=== PATIENT | female | born 1940 | race Two or more races ===

== ENCOUNTER 2024-09-28 10:30 | Outpatient (CLI) | payer OTHER ==
[2024-09-28] MEDS ORDERED: TENORMIN25 MG (17:53)
[2024-09-28] MEDS ORDERED: MESTINON60 M1 PO (17:55)
[2024-09-28] MEDS ORDERED: HYDRODIURIL12.5 MG PO (17:55)
== END 2024-09-28 10:39 | disposition home or self-care (01) ==
LOC: TOM 10:30
PROVIDERS: ATTEND Surgery
DX: K57.20 Diverticulitis of large intestine with perforation and abscess without bleeding (principal); K21.00 Gastro-esophageal reflux disease with esophagitis, without bleeding
CPT/HCPCS: 74177; Q9965

== ENCOUNTER 2024-09-28 17:35 | Inpatient (IN) | payer OTHER ==
[~2024-09-28] VITALS: Wt 61.2 kg
[2024-09-28] MEDS ORDERED: TENORMIN25 MG (17:53)
[2024-09-28] MEDS ORDERED: MESTINON60 M1 PO (17:55)
[2024-09-28] MEDS ORDERED: HYDRODIURIL12.5 MG PO (17:55)
--- NOTE | 2024-09-28 17:59 | NUR ---
PTE ALERTA Y ORIENTADA X3, SE WILLY S/V. PTE REFIERE QUE HOY SE REALIZO UN CT Y DR. CHRISTOPHER HERNANDEZ LE INDICO QUE SE ENCONTRABA CON UN DIVERTICULO PERFORADO. DR. CHRISTOPHER HERNANDEZ LE ORDENO QUE VINIERA A ELLIS DE EMERGENCIAS PARA SER INGRESADA. SE UBICA A PTE EN [place].
[2024-09-28] MEDS ORDERED: FAMOTIDINE/PF 20 MG in 0.9 % SODIUM CHLORIDE 8 ML IV PUSH STA (18:36)
[2024-09-28] MEDS ORDERED: 0.9 % SODIUM CHLORIDE 1,000 ML IV SCH ×2 (18:45→21:00)
[2024-09-28] MEDS ORDERED: MEROPENEM 1,000 MG VIAL IV ONE (18:45)
--- NOTE | 2024-09-28 19:08 | NUR ---
SE EDUCA A PTE SOBRE TX MEDICO, SE WILLY MUESTRAS DE LABORATORIO UTILIZANDO MEDIDAS ASEPTICAS. SE COLOCA H/L ENRIQUE DE EDEMA. SE ADMINISTRAN MEDICAMENTOS LOS CUALES TOLERA. PTE REHUSA PEPCID IV. SE REALIZA EKG A PTE Y SE NOTIFICA RX PENDIENTE A REALIZAR.
[2024-09-28 19:16] LABS: HEMATOCRIT 31.2 % (36.0-45.00); HEMOGLOBIN 10.3 g/dL (12.0-15.00); MEAN CELL VOLUME 88.9 fL (80.00-100.00); MEAN CORPUSCULAR HEMOGLOBIN 29.3 pg (27.00-32.0); PLATELET COUNT 485 K/uL (150-450); RED BLOOD COUNT 3.51 M/uL (4.00-6.00); RED CELL DISTRIBUTION WIDTH 15.2 % (11.5-14.5)
[2024-09-28 20:19] LABS: INR 1.09; PARTIAL THROMBOPLASTIN TIME 27.6 SECONDS (22.0-34.0); PROTHROMBIN TIME 11.8 SECONDS (9.0-11.5)
[2024-09-28 20:23] LABS: ALBUMIN 2.4 gm/dL (3.4-5.0); BILIRUBIN TOTAL 0.3 mg/dL (0.3-1.2); CALCIUM 8.6 mg/dL (8.5-10.1); CREATININE SERUM 0.81 mg/dL (0.55-1.02); GFR 67.36; GLOBULINA 4.3 G/DL (2.4-3.5); POTASSIUM 3.42 mEq/L (3.5-5.1); TOTAL PROTEIN 6.7 gm/dL (6.4-8.2)
[2024-09-28] MEDS ORDERED: PYRIDOSTIGMINE BROMIDE 60 MG TABLET PO SCH (21:00)
[2024-09-28] MEDS ORDERED: ACETAMINOPHEN 500 MG GEL..CAP PO PRN (21:00)
[2024-09-28] MEDS ORDERED: ONDANSETRON HCL 4 MG in 0.9 % SODIUM CHLORIDE 50 ML IV PRN (21:00)
[2024-09-28 23:14] VITALS: BP 145/57; O2SAT 97
[2024-09-29 01:52] LABS: PH,URINE 7.5 (5.0-8.0); URINE APPEARANCE Clear; URINE BILIRRUBIN Negative (NEGATIVE); URINE BLOOD Negative; URINE COLOR Dark Yellow; URINE GLUCOSE Negative (NEGATIVE); URINE KETONE Trace (NEGATIVE); URINE LEUKOCYTE Trace; URINE NITRATE Positive; URINE PROTEIN Trace (NEGATIVE)
[2024-09-29 01:56] LABS: URINE BACTERIA 20.8 uL (0.0-1933); URINE EPITHELIAL CELLS 19.1 uL (0.0-38.8); URINE RBC 18.7 uL (0.0-20.8); URINE WBC 61.3 uL (0.0-23.2)
[2024-09-29 02:07] LABS: URINE CAST 0.29 uL (0.0-1.40)
[2024-09-29 02:15] VITALS: BP 134/69; O2SAT 98
[2024-09-29] MEDS ORDERED: MEROPENEM 1,000 MG in 0.9 % SODIUM CHLORIDE 100 ML IV SCH (03:00)
[2024-09-29 08:00] VITALS: BP 135/77; O2SAT 96
[2024-09-29] MEDS ORDERED: HYDROCHLOROTHIAZIDE 12.5 MG CAPSULE PO SCH (09:00)
[2024-09-29] MEDS ORDERED: ENOXAPARIN SODIUM 40 MG/0.4 ML SYRINGE SUBCUTANEO SCH (09:00)
[2024-09-29] MEDS ORDERED: ATENOLOL 25 MG TABLET PO SCH (09:00)
[2024-09-29] MEDS ORDERED: MULTIVIT INFUSN,ADULT 4,VIT K 10 ML VIAL IV NR (12:00)
[2024-09-29 16:22] VITALS: BP 164/70; O2SAT 94
[2024-09-29] MEDS ORDERED: POLYETHYLENE GLYCOL 3350 17 GM BLIST.PACK PO SCH (17:00)
[2024-09-29] MEDS ORDERED: AMINO ACIDS 4.25%/DEXTROSE 10% 1,000 ML CENTRAL SCH (17:00)
[2024-09-29 23:30] LABS: CALCIUM 8.7 mg/dL (8.5-10.1); CHOL HDL RATIO 2.8 (0-5.0); CREATININE SERUM 0.66 mg/dL (0.55-1.02); GFR 85.32; POTASSIUM 3.4 mEq/L (3.5-5.1)
[2024-09-30 00:24] VITALS: BP 136/73; O2SAT 95
[2024-09-30 08:00] VITALS: BP 167/75; O2SAT 97
[2024-09-30 16:12] VITALS: BP 130/65; O2SAT 94
[2024-10-01 00:19] VITALS: BP 120/56; O2SAT 94
[2024-10-01] MEDS ORDERED: SUGAMMADEX SODIUM 200 MG/2 ML VIAL IV ONE (12:30)
[2024-10-01] MEDS ORDERED: MORPHINE SULFATE 4 MG/ML CARTRIDGE IV PRN (13:00)
[2024-10-01] MEDS ORDERED: HYOSCYAMINE SULFATE 0.125 MG TAB.SUBL SL SCH (13:00)
[2024-10-01] MEDS ORDERED: SIMETHICONE 125 MG CAPSULE PO SCH (13:00)
[2024-10-01] MEDS ORDERED: DEXTROSE 50 % IN WATER 0.5 G/ML DISP.SYRIN IV PRN (13:00)
[2024-10-01] MEDS ORDERED: OxyCODONE HCL 5 MG TABLET (ROXICODONE) PO PRN (13:00)
[2024-10-01] MEDS ORDERED: ONDANSETRON HCL 2 MG/ML VIAL IV PRN (13:00)
[2024-10-01 13:44] LABS: HEMOGLOBIN 9.9 g/dL (12.0-15.00); MEAN CELL VOLUME 89.7 fL (80.00-100.00); MEAN CORPUSCULAR HEMOGLOBIN 29.5 pg (27.00-32.0); MEAN CORPUSCULAR HGB CONC 32.9 g/dl (32.0-36.0); PLATELET COUNT 469 K/uL (150-450); RED BLOOD COUNT 3.34 M/uL (4.00-6.00); RED CELL DISTRIBUTION WIDTH 15.1 % (11.5-14.5)
[2024-10-01] MEDS ORDERED: ACETAMINOPHEN 500 MG GEL..CAP PO SCH (14:00)
[2024-10-01 14:07] VITALS: BP 146/85; O2SAT 95
[2024-10-01] MEDS ORDERED: METOCLOPRAMIDE HCL 5 MG/ML VIAL IV SCH (17:00)
[2024-10-01] MEDS ORDERED: MEROPENEM 500 MG/VIAL VIAL IV SCH (18:00)
[2024-10-01] MEDS ORDERED: HYDROCORTISONE SODIUM SUCC/PF 50 MG/ML ML IV SCH (18:00)
[2024-10-01] MEDS ORDERED: FAMOTIDINE/PF 20 MG/2 ML VIAL IV PUSH SCH (21:00)
[2024-10-02 01:18] VITALS: BP 134/65; O2SAT 98
[2024-10-02 06:56] LABS: HEMATOCRIT 26.8 % (36.0-45.00); MEAN CELL VOLUME 87.8 fL (80.00-100.00); MEAN CORPUSCULAR HEMOGLOBIN 29.5 pg (27.00-32.0); MEAN CORPUSCULAR HGB CONC 33.7 g/dl (32.0-36.0); PLATELET COUNT 359 K/uL (150-450); RED BLOOD COUNT 3.05 M/uL (4.00-6.00)
[2024-10-02 07:26] LABS: ALBUMIN 1.8 gm/dL (3.4-5.0); BILIRUBIN TOTAL 0.27 mg/dL (0.3-1.2); CALCIUM 7.7 mg/dL (8.5-10.1); CREATININE SERUM 0.76 mg/dL (0.55-1.02); GFR 72.5; GLOBULINA 3.3 G/DL (2.4-3.5); PHOSPHOROUS 2.5 mg/dL (2.5-4.9); POTASSIUM 3.69 mEq/L (3.5-5.1); TOTAL PROTEIN 5.1 gm/dL (6.4-8.2)
[2024-10-02 07:28] LABS: C-REACTIVE PROTEIN 4.66 MG/DL (0.00-0.29)
[2024-10-02 07:29] LABS: MAGNESIUM 1.4 mg/dL (1.8-2.4)
[2024-10-02 08:00] VITALS: BP 142/66; O2SAT 95
[2024-10-02] MEDS ORDERED: MAGNESIUM SULFATE IN WATER 50 ML IV NR (08:00)
[2024-10-02] MEDS ORDERED: LACTOBACILLUS ACIDOPHILUS 1 CAP CAP PO SCH (09:00)
[2024-10-02] MEDS ORDERED: HYDROCORTISONE SODIUM SUCC/PF 50 MG/ML ML IV SCH (12:00)
[2024-10-02] MEDS ORDERED: ENOXAPARIN SODIUM 40 MG/0.4 ML SYRINGE SUBCUTANEO SCH (17:00)
[2024-10-02 19:49] VITALS: BP 170/85; O2SAT 97
[2024-10-03 00:10] VITALS: BP 136/82; O2SAT 96
[2024-10-03 07:53] LABS: HEMATOCRIT 28.5 % (36.0-45.00); HEMOGLOBIN 9.2 g/dL (12.0-15.00); MEAN CELL VOLUME 89.5 fL (80.00-100.00); MEAN CORPUSCULAR HEMOGLOBIN 28.8 pg (27.00-32.0); MEAN CORPUSCULAR HGB CONC 32.1 g/dl (32.0-36.0); PLATELET COUNT 396 K/uL (150-450); RED BLOOD COUNT 3.19 M/uL (4.00-6.00); RED CELL DISTRIBUTION WIDTH 15.3 % (11.5-14.5)
[2024-10-03 08:00] VITALS: BP 171/74; O2SAT 99
[2024-10-03 08:29] LABS: BLOOD UREA NITROGEN 23 mg/dL (7-18); BUN CREA RATIO 33 (7.0-25.0); CALCIUM 8.1 mg/dL (8.5-10.1); CARBON DIOXIDE 29 mEq/L (21-32); CHLORIDE 114 mmol/L (98-107); GFR 79.72; GLUCOSE FASTING 106 mg/dL (65-100); OSMOLALITY SERUM 280 MOSM/KG (275-295); POTASSIUM 3.38 mEq/L (3.5-5.1); SODIUM 138 mmol/L (136-145)
[2024-10-03] MEDS ORDERED: ENOXAPARIN SODIUM 40 MG/0.4 ML SYRINGE SUBCUTANEO SCH (09:00)
[2024-10-03 10:48] LABS: PHOSPHOROUS 1.2 mg/dL (2.5-4.9)
[2024-10-03] MEDS ORDERED: POTASSIUM CHLORIDE 20MEQ/100ML H2O PB IV NR (11:30)
[2024-10-03] MEDS ORDERED: POTASSIUM PHOS,M-BASIC-D-BASIC 15 MM in 0.9 % SODIUM CHLORIDE 250 ML IV NR (11:30)
[2024-10-03 16:00] VITALS: BP 131/69; O2SAT 95
[2024-10-03] MEDS ORDERED: HYDROCORTISONE SODIUM SUCC/PF 50 MG/ML ML IV SCH (21:00)
[2024-10-04 01:31] VITALS: BP 138/71; O2SAT 96
[2024-10-04 09:26] VITALS: BP 181/76; O2SAT 97
[2024-10-04 11:19] LABS: HEMATOCRIT 30.6 % (36.0-45.00); MEAN CELL VOLUME 89.5 fL (80.00-100.00); MEAN CORPUSCULAR HEMOGLOBIN 29.2 pg (27.00-32.0); MEAN CORPUSCULAR HGB CONC 32.7 g/dl (32.0-36.0); PLATELET COUNT 488 K/uL (150-450); RED BLOOD COUNT 3.43 M/uL (4.00-6.00); RED CELL DISTRIBUTION WIDTH 15.3 % (11.5-14.5)
== END 2024-10-04 14:59 | disposition home or self-care (01) | DRG 331 ==
LOC: ER 17:37 → SURH 21:58
PROVIDERS: General Practice; Internal Medicine Geriatric Medicine; Internal Medicine Infectious Disease; ADMIT Surgery; ATTEND Surgery
PROC: 02HV33Z Insertion of Infusion Device into Superior Vena Cava, Percutaneous Approach (ICD-10-PCS; 2024-10-01)
PROC: 0D1B4Z4 Bypass Ileum to Cutaneous, Percutaneous Endoscopic Approach (ICD-10-PCS; principal; 2024-10-01 09:45)
DX: K57.20 Diverticulitis of large intestine with perforation and abscess without bleeding (principal); I10 Essential (primary) hypertension; E78.5 Hyperlipidemia, unspecified; K40.90 Unilateral inguinal hernia, without obstruction or gangrene, not specified as recurrent; G70.00 Myasthenia gravis without (acute) exacerbation; D64.9 Anemia, unspecified

== ENCOUNTER 2024-10-27 13:03 | Inpatient (IN) | payer OTHER ==
[~2024-10-27] VITALS: Ht 154.9 cm; Wt 54.4 kg
[~2024-10-27 13:03] MED LIST: HYDRODIURIL12.5 MG PO; MESTINON60 M1 PO; TENORMIN25 MG
[2024-10-27] MEDS ORDERED: DICYCLOMINE HCL 20 MG TABLET PO ONE (14:00)
[2024-10-27] MEDS ORDERED: 0.9 % SODIUM CHLORIDE 1,000 ML IV ONE ×2 (14:00→17:15)
[2024-10-27] MEDS ORDERED: FAMOtidine 10 MG/ML (4ML VIAL) IV ONE (14:00)
[2024-10-27] MEDS ORDERED: DICYCLOMINE HCL 10 MG CAPSULE PO ONE (14:22)
[2024-10-27] MEDS ORDERED: FAMOTIDINE/PF 20 MG/2 ML VIAL ONE (14:22)
[2024-10-27 15:43] LABS: URINE APPEARANCE Clear; URINE BILIRRUBIN Negative (NEGATIVE); URINE BLOOD Negative; URINE COLOR Dark Yellow; URINE GLUCOSE Negative (NEGATIVE); URINE KETONE Trace (NEGATIVE); URINE LEUKOCYTE Trace; URINE NITRATE Negative; URINE PROTEIN 30 (NEGATIVE); URINE UROBILINOGEN 0.2 E.U./dl
[2024-10-27 15:44] LABS: URINE BACTERIA 189.6 uL (0.0-1933); URINE CAST 5.59 uL (0.0-1.40); URINE EPITHELIAL CELLS 35.4 uL (0.0-38.8); URINE RBC 19.1 uL (0.0-20.8); URINE WBC 32.4 uL (0.0-23.2)
[2024-10-27 15:49] LABS: HEMATOCRIT 36.1 % (36.0-45.00); MEAN CELL VOLUME 87.5 fL (80.00-100.00); MEAN CORPUSCULAR HEMOGLOBIN 29.1 pg (27.00-32.0); MEAN CORPUSCULAR HGB CONC 33.3 g/dl (32.0-36.0); PLATELET COUNT 596 K/uL (150-450); RED BLOOD COUNT 4.12 M/uL (4.00-6.00); RED CELL DISTRIBUTION WIDTH 15.8 % (11.5-14.5)
[2024-10-27 16:28] LABS: ALBUMIN 3.1 gm/dL (3.4-5.0); BILIRUBIN TOTAL 0.41 mg/dL (0.3-1.2); CALCIUM 9.8 mg/dL (8.5-10.1); CREATININE SERUM 2.33 mg/dL (0.55-1.02); GFR 19.9; GLOBULINA 5.2 G/DL (2.4-3.5); POTASSIUM 4.43 mEq/L (3.5-5.1); TOTAL PROTEIN 8.3 gm/dL (6.4-8.2)
[2024-10-27] MEDS ORDERED: PIPERACILLIN/TAZOBACTAM SODIUM 3.375 GM VIAL IV SCH (17:02)
[2024-10-27] MEDS ORDERED: PIPERACILLIN/TAZOBACTAM SODIUM 3.375 GM VIAL IV ONE (17:19)
[2024-10-27] MEDS ORDERED: PYRIDOSTIGMINE BROMIDE 60 MG TABLET PO SCH (21:42)
[2024-10-27] MEDS ORDERED: INSULIN LISPRO 1,000 UNIT/10 ML UNITS SUBCUTANEO PRN (21:45)
[2024-10-27] MEDS ORDERED: DEXTROSE 5 % AND 0.9 % NACL 1,000 ML IV SCH (21:45)
[2024-10-27] MEDS ORDERED: ACETAMINOPHEN 500 MG GEL..CAP PO PRN (21:45)
[2024-10-27] MEDS ORDERED: MORPHINE SULFATE 2 MG/ML CARTRIDGE IV PRN (21:45)
[2024-10-27] MEDS ORDERED: DEXTROSE 50 % IN WATER 0.5 G/ML DISP.SYRIN IV PRN (21:45)
[2024-10-27] MEDS ORDERED: ONDANSETRON HCL 4 MG in 0.9 % SODIUM CHLORIDE 50 ML IV PRN (21:45)
[2024-10-27] MEDS ORDERED: HYOSCYAMINE SULFATE 0.125 MG TAB.SUBL SL PRN (21:45)
[2024-10-27] MEDS ORDERED: hydrALAZINE HCL 20 MG VIAL IV PRN (21:45)
[2024-10-28] MEDS ORDERED: PIPERACILLIN/TAZOBACTAM SODIUM 2.25 GM in DEXTROSE 5 % IN WATER 50 ML IV SCH
[2024-10-28 03:39] VITALS: BP 124/58; O2SAT 98
[2024-10-28 07:31] LABS: HEMATOCRIT 30.9 % (36.0-45.00); HEMOGLOBIN 10.3 g/dL (12.0-15.00); MEAN CELL VOLUME 87.6 fL (80.00-100.00); MEAN CORPUSCULAR HEMOGLOBIN 29.2 pg (27.00-32.0); MEAN CORPUSCULAR HGB CONC 33.4 g/dl (32.0-36.0); PLATELET COUNT 480 K/uL (150-450); RED BLOOD COUNT 3.52 M/uL (4.00-6.00)
[2024-10-28 08:00] VITALS: BP 121/56; O2SAT 100
[2024-10-28] MEDS ORDERED: PANTOPRAZOLE SODIUM 40 MG in 0.9 % SODIUM CHLORIDE 8 ML IV PUSH SCH (09:00)
[2024-10-28] MEDS ORDERED: ATENOLOL 25 MG TABLET PO SCH (09:00)
[2024-10-28 09:04] LABS: ERYTHROCYTE SEDIMENTATION RATE 102 mm/hr
[2024-10-28] MEDS ORDERED: PYRIDOSTIGMINE BROMIDE 60 MG TABLET PO SCH (12:00)
[2024-10-28] MEDS ORDERED: DEXTROSE 5%-WATER 50ML IV.SOLN ONE (12:18)
[2024-10-28 16:40] VITALS: BP 104/61; O2SAT 98
[2024-10-28 23:53] VITALS: BP 93/49; O2SAT 93
[2024-10-29 07:59] VITALS: BP 101/53; O2SAT 96
[2024-10-29 15:52] VITALS: BP 126/60; O2SAT 98
[2024-10-29 22:25] LABS: ob NEGATIVE (NEGATIVE)
[2024-10-30] VITALS: BP 100/61; O2SAT 95
[2024-10-30 07:42] LABS: HEMATOCRIT 31.2 % (36.0-45.00); HEMOGLOBIN 10.2 g/dL (12.0-15.00); MEAN CELL VOLUME 88.6 fL (80.00-100.00); MEAN CORPUSCULAR HEMOGLOBIN 29.1 pg (27.00-32.0); MEAN CORPUSCULAR HGB CONC 32.8 g/dl (32.0-36.0); PLATELET COUNT 464 K/uL (150-450); RED BLOOD COUNT 3.53 M/uL (4.00-6.00); RED CELL DISTRIBUTION WIDTH 16.2 % (11.5-14.5)
[2024-10-30 08:10] LABS: ALBUMIN 2.3 gm/dL (3.4-5.0); BILIRUBIN TOTAL 0.34 mg/dL (0.3-1.2); C-REACTIVE PROTEIN 6.41 MG/DL (0.00-0.29); CALCIUM 8.7 mg/dL (8.5-10.1); CREATININE SERUM 1.87 mg/dL (0.55-1.02); GFR 25.65; GLOBULINA 3.7 G/DL (2.4-3.5); POTASSIUM 4.12 mEq/L (3.5-5.1)
[2024-10-30 08:13] LABS: ERYTHROCYTE SEDIMENTATION RATE 61 mm/hr
[2024-10-30 10:34] VITALS: BP 98/63; O2SAT 93
[2024-10-30 16:24] VITALS: BP 106/61; O2SAT 96
[2024-10-31 05:15] VITALS: BP 113/71; O2SAT 97
[2024-10-31 07:03] LABS: HEMATOCRIT 30.1 % (36.0-45.00); MEAN CELL VOLUME 88.9 fL (80.00-100.00); MEAN CORPUSCULAR HEMOGLOBIN 29.6 pg (27.00-32.0); MEAN CORPUSCULAR HGB CONC 33.3 g/dl (32.0-36.0); PLATELET COUNT 431 K/uL (150-450); RED BLOOD COUNT 3.39 M/uL (4.00-6.00); RED CELL DISTRIBUTION WIDTH 16.1 % (11.5-14.5)
[2024-10-31 07:45] LABS: CALCIUM 8.7 mg/dL (8.5-10.1); CREATININE SERUM 1.25 mg/dL (0.55-1.02); GFR 40.83; PHOSPHOROUS 3.1 mg/dL (2.5-4.9); POTASSIUM 3.96 mEq/L (3.5-5.1)
[2024-10-31 08:03] LABS: MAGNESIUM 1.1 mg/dL (1.8-2.4)
[2024-10-31] MEDS ORDERED: MAGNESIUM SULFATE IN WATER 50 ML IV NR (08:50)
[2024-10-31 09:09] VITALS: BP 107/64; O2SAT 96
[2024-10-31] MEDS ORDERED: IOVERSOL 320 MG/ML - 50 ML VIAL IV ONE (11:09)
[2024-10-31] MEDS ORDERED: CHLORHEXIDINE GLUCONATE 120 ML BOTTLE TOP ONE (11:10)
[2024-10-31] MEDS ORDERED: POVIDONE-IODINE 118 ML BOTT TOP ONE (11:10)
[2024-10-31] MEDS ORDERED: DEXTROSE 50 % IN WATER 0.5 G/ML DISP.SYRIN IV PRN (14:15)
[2024-11-01 01:48] VITALS: BP 109/62; O2SAT 96
[2024-11-01] MEDS ORDERED: METHYLPREDNISOLONE SOD SUCC 40 MG VIAL IV STA (11:59)
[2024-11-01] MEDS ORDERED: SODIUM CHLORIDE 0.45 % 1,000 ML IV SCH (12:00)
[2024-11-01 14:13] LABS: ABG PH 7.391 (7.35-7.45); ABG PO2 84.7 mmHg (80-100); ABG pCO2 30.4 mmHg (35-45); BASE EXCESS -5.6 mmol/l; Tco2 18.9 mmol/l
[2024-11-01 14:15] LABS: allen test SATISFACTORY; o2 21 %; puncture site RADIAL RIGHT
[2024-11-01 18:59] VITALS: BP 143/83; O2SAT 95
[2024-11-02 03:50] VITALS: BP 140/73; O2SAT 100
[2024-11-02 07:08] LABS: HEMATOCRIT 30.4 % (36.0-45.00); HEMOGLOBIN 10.2 g/dL (12.0-15.00); MEAN CELL VOLUME 86.7 fL (80.00-100.00); MEAN CORPUSCULAR HEMOGLOBIN 29.2 pg (27.00-32.0); MEAN CORPUSCULAR HGB CONC 33.7 g/dl (32.0-36.0); PLATELET COUNT 439 K/uL (150-450); RED BLOOD COUNT 3.51 M/uL (4.00-6.00); RED CELL DISTRIBUTION WIDTH 16.6 % (11.5-14.5)
[2024-11-02 08:03] LABS: CREATININE SERUM 1.02 mg/dL (0.55-1.02); GFR 51.63; PHOSPHOROUS 2.5 mg/dL (2.5-4.9); POTASSIUM 3.41 mEq/L (3.5-5.1)
[2024-11-02 08:18] LABS: MAGNESIUM 1.1 mg/dL (1.8-2.4)
[2024-11-02] MEDS ORDERED: METHYLPREDNISOLONE SOD SUCC 40 MG VIAL IV SCH (09:00)
[2024-11-02] MEDS ORDERED: MAGNESIUM SULFATE IN WATER 2 GM/50 ML PIGGYBAG IV STA (10:58)
[2024-11-02] MEDS ORDERED: POTASSIUM CHLORIDE 20MEQ/100ML H2O PB IV NR (11:00)
[2024-11-02] MEDS ORDERED: DIPHENHYDRAMINE HCL 50 MG/ML VIAL 1ML IV STA (12:40)
[2024-11-02] MEDS ORDERED: DIPHENHYDRAMINE HCL 50 MG/ML VIAL 1ML ONE (12:48)
[2024-11-02] MEDS ORDERED: WATER IV SCH (18:00)
[2024-11-02] MEDS ORDERED: [UNRECOGNIZED DRUG - OTHER] IV SCH (18:00)
[2024-11-02] MEDS ORDERED: PIPERACILLIN IV SCH (18:00)
[2024-11-02] MEDS ORDERED: DEXTROSE 5% IV SCH (18:00)
[2024-11-02 19:24] VITALS: BP 150/70; O2SAT 98
[2024-11-03 01:27] VITALS: BP 163/75; O2SAT 96
[2024-11-03 08:00] VITALS: BP 150/65
[2024-11-03 16:00] VITALS: BP 123/71; O2SAT 99
[2024-11-04 02:01] VITALS: BP 146/69; O2SAT 95
[2024-11-04 08:00] VITALS: BP 142/73; O2SAT 99
[2024-11-04 16:00] VITALS: BP 157/89; O2SAT 96
[2024-11-04 17:45] LABS: URINE APPEARANCE Cloudy; URINE BILIRRUBIN Negative (NEGATIVE); URINE BLOOD Large; URINE COLOR Yellow; URINE GLUCOSE Negative (NEGATIVE); URINE KETONE Negative (NEGATIVE); URINE LEUKOCYTE Small; URINE NITRATE Negative; URINE UROBILINOGEN 0.2 E.U./dl
[2024-11-04 18:12] LABS: URINE BACTERIA 129.7 uL (0.0-1933); URINE EPITHELIAL CELLS 19.4 uL (0.0-38.8); URINE RBC 5738.8 uL (0.0-20.8); URINE WBC 76.6 uL (0.0-23.2)
[2024-11-04 18:28] LABS: URINE CAST 0.58 uL (0.0-1.40); URINE PROTEIN 100 (NEGATIVE)
[2024-11-05 01:18] VITALS: BP 158/83; O2SAT 98
[2024-11-05 08:00] VITALS: BP 154/79; O2SAT 100
[2024-11-05 11:04] LABS: HEMATOCRIT 32.7 % (36.0-45.00); MEAN CELL VOLUME 87.2 fL (80.00-100.00); MEAN CORPUSCULAR HEMOGLOBIN 29.2 pg (27.00-32.0); MEAN CORPUSCULAR HGB CONC 33.5 g/dl (32.0-36.0); PLATELET COUNT 449 K/uL (150-450); RED BLOOD COUNT 3.75 M/uL (4.00-6.00); RED CELL DISTRIBUTION WIDTH 16.4 % (11.5-14.5)
[2024-11-05 11:55] LABS: CALCIUM 9.3 mg/dL (8.5-10.1); CREATININE SERUM 0.95 mg/dL (0.55-1.02); GFR 56.04; POTASSIUM 4.13 mEq/L (3.5-5.1)
[2024-11-05 12:42] LABS: MAGNESIUM 1.2 mg/dL (1.8-2.4); PHOSPHOROUS 1.3 mg/dL (2.5-4.9)
[2024-11-05] MEDS ORDERED: POTASSIUM PHOS,M-BASIC-D-BASIC 15 MM in 0.9 % SODIUM CHLORIDE 250 ML IV NR (12:45)
[2024-11-05] MEDS ORDERED: MAGNESIUM SULFATE IN WATER 50 ML IV NR (12:45)
[2024-11-05] MEDS ORDERED: MAGNESIUM CHLORIDE 70 MG TABLET.DR PO STA (14:26)
[2024-11-05] MEDS ORDERED: DIPHENHYDRAMINE HCL 50 MG/ML VIAL 1ML IV NR (14:30)
[2024-11-05 14:50] VITALS: BP 184/95; O2SAT 100
[2024-11-05 16:00] VITALS: BP 152/67; O2SAT 100
[2024-11-05] MEDS ORDERED: LOPERAMIDE HCL 2 MG CAPSULE PO SCH (16:00)
[2024-11-05 16:52] LABS: ABG PH 7.379 (7.35-7.45); ABG PO2 115.4 mmHg (80-100); ABG pCO2 39.4 mmHg (35-45); BASE EXCESS -2.1 mmol/l; BICARBONATE 22.7 mmol/l (23-25); SaO2 98.3 %
[2024-11-06] VITALS: BP 187/93; O2SAT 100
[2024-11-06 00:02] LABS: allen test SATISFACTORY; o2 28 %; puncture site RADIAL LEFT
[2024-11-06 01:00] VITALS: BP 130/53
[2024-11-06] MEDS ORDERED: ACETAMINOPHEN 500 MG GEL..CAP PO PRN (01:45)
[2024-11-06 07:55] LABS: HEMATOCRIT 30.9 % (36.0-45.00); MEAN CELL VOLUME 88.5 fL (80.00-100.00); MEAN CORPUSCULAR HGB CONC 33.1 g/dl (32.0-36.0); PLATELET COUNT 422 K/uL (150-450); RED BLOOD COUNT 3.49 M/uL (4.00-6.00); RED CELL DISTRIBUTION WIDTH 16.8 % (11.5-14.5)
[2024-11-06 08:00] VITALS: BP 135/55
[2024-11-06 08:04] LABS: HEMOGLOBIN 10.2 g/dL (12.0-15.00); MEAN CORPUSCULAR HEMOGLOBIN 29.2 pg (27.00-32.0)
[2024-11-06] MEDS ORDERED: MAGNESIUM CHLORIDE 70 MG TABLET.DR PO SCH (09:00)
[2024-11-06] MEDS ORDERED: PREDNISONE 20 MG TABLET PO SCH (09:00)
[2024-11-06] MEDS ORDERED: LOPERAMIDE HCL 2 MG CAPSULE PO SCH (13:00)
[2024-11-06 16:00] VITALS: BP 125/52; O2SAT 99
[2024-11-06] MEDS ORDERED: AMINO ACIDS 1 EACH TABLET PO SCH (17:00)
[2024-11-07 00:49] VITALS: BP 139/52
[2024-11-07 08:00] VITALS: BP 166/77; O2SAT 97
[2024-11-07 19:42] VITALS: BP 133/72; O2SAT 98
[2024-11-08 02:35] VITALS: BP 137/70; O2SAT 99
[2024-11-08 07:09] LABS: HEMATOCRIT 26.6 % (36.0-45.00); MEAN CELL VOLUME 87.4 fL (80.00-100.00); MEAN CORPUSCULAR HGB CONC 33.3 g/dl (32.0-36.0); PLATELET COUNT 342 K/uL (150-450); RED BLOOD COUNT 3.04 M/uL (4.00-6.00); RED CELL DISTRIBUTION WIDTH 16.8 % (11.5-14.5)
[2024-11-08 07:13] LABS: HEMOGLOBIN 8.8 g/dL (12.0-15.00); MEAN CORPUSCULAR HEMOGLOBIN 28.9 pg (27.00-32.0)
[2024-11-08 07:17] LABS: ERYTHROCYTE SEDIMENTATION RATE 45 mm/hr
[2024-11-08 07:47] LABS: CREATININE SERUM 0.78 mg/dL (0.55-1.02); GFR 70.36; POTASSIUM 4.19 mEq/L (3.5-5.1)
[2024-11-08 07:53] LABS: C-REACTIVE PROTEIN 1.55 MG/DL (0.00-0.29)
[2024-11-08 08:00] VITALS: BP 180/90; O2SAT 100
[2024-11-08] MEDS ORDERED: PREDNISONE 5 MG TABLET PO SCH (09:00)
[2024-11-08] MEDS ORDERED: hydrALAZINE HCL 25 MG TABLET PO SCH (17:00)
[2024-11-08 17:24] VITALS: BP 169/71; O2SAT 100
[2024-11-09 01:20] VITALS: BP 144/76; O2SAT 96
[2024-11-09 08:00] VITALS: BP 148/78; O2SAT 99
[2024-11-09] MEDS ORDERED: Cyanocobalamin/Mecobalamin 1 TAB.SL SL SCH (09:00)
[2024-11-09] MEDS ORDERED: IRON FUM,PS/FOLIC ACID/VITC/B3 1 CAP CAPSULE PO SCH (09:00)
[2024-11-09] MEDS ORDERED: LOPERAMIDE2 MG PO (13:15)
[2024-11-09] MEDS ORDERED: Neurin-Sl Tablet Sl SL (13:15)
[2024-11-09] MEDS ORDERED: PRE PROTEIN1 EACH PO (13:15)
[2024-11-09] MEDS ORDERED: MESTINON60 M1 PO (13:15)
[2024-11-09] MEDS ORDERED: PREDNISONE 5MG PO (13:15)
[2024-11-09] MEDS ORDERED: TENORMIN25 MG PO (13:15)
[2024-11-09] MEDS ORDERED: PEPCID AC20 MG PO (13:15)
[2024-11-09] MEDS ORDERED: INTEGRA F CAPS1 EACH PO (13:15)
[2024-11-09] MEDS ORDERED: HYDRALAZINE HCL25 MG PO (13:15)
== END 2024-11-09 13:59 | disposition home or self-care (01) | DRG 853 ==
LOC: ER 13:05 → SEC-K 22:13 → SURG 22:13
PROVIDERS: General Practice; Internal Medicine; Internal Medicine Infectious Disease; Surgery; Urology; ADMIT Internal Medicine Geriatric Medicine; ATTEND Internal Medicine Geriatric Medicine
PROC: BW21ZZZ Computerized Tomography (CT Scan) of Abdomen and Pelvis (ICD-10-PCS; 2024-10-26)
PROC: BT43ZZZ Ultrasonography of Bilateral Kidneys (ICD-10-PCS; 2024-10-27)
PROC: 02HV33Z Insertion of Infusion Device into Superior Vena Cava, Percutaneous Approach (ICD-10-PCS; 2024-10-30)
PROC: 0T768DZ Dilation of Right Ureter with Intraluminal Device, Via Natural or Artificial Opening Endoscopic (ICD-10-PCS; principal; 2024-10-31 18:00)
PROC: 0DJD8ZZ Inspection of Lower Intestinal Tract, Via Natural or Artificial Opening Endoscopic (ICD-10-PCS; 2024-10-31 18:00)
PROC: B24BYZZ Ultrasonography of Heart with Aorta using Other Contrast (ICD-10-PCS; 2024-11-05)
PROC: BW21YZZ Computerized Tomography (CT Scan) of Abdomen and Pelvis using Other Contrast (ICD-10-PCS; 2024-11-07)
DX: A41.9 Sepsis, unspecified organism (principal); K65.1 Peritoneal abscess; K57.92 Diverticulitis of intestine, part unspecified, without perforation or abscess without bleeding; N17.9 Acute kidney failure, unspecified; N13.0 Hydronephrosis with ureteropelvic junction obstruction; D72.829 Elevated white blood cell count, unspecified; R65.10 Systemic inflammatory response syndrome (SIRS) of non-infectious origin without acute organ dysfunction; D64.9 Anemia, unspecified; G70.00 Myasthenia gravis without (acute) exacerbation; Z79.52 Long term (current) use of systemic steroids; I10 Essential (primary) hypertension

== ENCOUNTER 2024-12-04 11:31 | Outpatient (CLI) | payer OTHER ==
[~2024-12-04 11:31] MED LIST changes: +HYDRALAZINE HCL25 MG PO; +INTEGRA F CAPS1 EACH PO; +LOPERAMIDE2 MG PO; +Neurin-Sl Tablet Sl SL; +PEPCID AC20 MG PO; +PRE PROTEIN1 EACH PO; +PREDNISONE 5MG PO; +TENORMIN25 MG PO
== END 2024-12-04 12:56 | disposition home or self-care (01) ==
LOC: TOM 11:31
DX: R10.11 Right upper quadrant pain (principal); R10.32 Left lower quadrant pain; R10.2 Pelvic and perineal pain; Z93.2 Ileostomy status
CPT/HCPCS: 74177; Q9965

== ENCOUNTER 2024-12-26 10:45 | Inpatient (IN) | payer OTHER ==
[~2024-12-26] VITALS: Ht 30.5 cm; Wt 54.4 kg
[2025-01-07] MEDS ORDERED: FUROsemide 20 MG/2 ML VIAL IV SCH (14:15)
[2025-01-07 14:30] VITALS: BP 121/79; O2SAT 98
[2025-01-07] MEDS ORDERED: 0.9 % SODIUM CHLORIDE 1,000 ML IV SCH (14:30)
[2025-01-07 15:40] LABS: HEMATOCRIT 28.4 % (36.0-45.00); HEMOGLOBIN 9.5 g/dL (12.0-15.00); MEAN CELL VOLUME 87.2 fL (80.00-100.00); MEAN CORPUSCULAR HEMOGLOBIN 29.1 pg (27.00-32.0); MEAN CORPUSCULAR HGB CONC 33.4 g/dl (32.0-36.0); PLATELET COUNT 229 K/uL (150-450); RED BLOOD COUNT 3.26 M/uL (4.00-6.00); RED CELL DISTRIBUTION WIDTH 16.8 % (11.5-14.5)
[2025-01-07 15:43] LABS: INR 0.99; PARTIAL THROMBOPLASTIN TIME 21.7 SECONDS (22.0-34.0); PROTHROMBIN TIME 10.8 SECONDS (9.0-11.5)
[2025-01-07 15:50] LABS: ALBUMIN 2.7 gm/dL (3.4-5.0); BILIRUBIN TOTAL 0.17 mg/dL (0.3-1.2); CALCIUM 9.4 mg/dL (8.5-10.1); CREATININE SERUM 1.15 mg/dL (0.55-1.02); GFR 44.95; GLOBULINA 3.8 G/DL (2.4-3.5); POTASSIUM 4.26 mEq/L (3.5-5.1); TOTAL PROTEIN 6.5 gm/dL (6.4-8.2)
[2025-01-07 16:00] VITALS: BP 116/69; O2SAT 97
[2025-01-07] MEDS ORDERED: PYRIDOSTIGMINE BROMIDE 60 MG TABLET PO SCH (17:00)
[2025-01-07] MEDS ORDERED: PHENAZOPYRIDINE HCL 100 MG TABLET PO SCH (17:00)
[2025-01-07] MEDS ORDERED: ATENOLOL 25 MG TABLET PO SCH (21:00)
[2025-01-07] MEDS ORDERED: FAMOtidine 20 MG TABLET PO SCH (21:00)
[2025-01-07 21:51] LABS: URINE APPEARANCE Cloudy; URINE BILIRRUBIN Small (NEGATIVE); URINE BLOOD Large; URINE COLOR Orange; URINE GLUCOSE Negative (NEGATIVE); URINE KETONE Negative (NEGATIVE); URINE LEUKOCYTE Moderate; URINE NITRATE Positive
[2025-01-07 21:55] LABS: URINE BACTERIA 296.2 uL (0.0-1933); URINE EPITHELIAL CELLS 70.1 uL (0.0-38.8); URINE RBC 695.7 uL (0.0-20.8); URINE WBC 269.9 uL (0.0-23.2)
[2025-01-07 22:09] LABS: URINE CAST 1.03 uL (0.0-1.40); URINE PROTEIN 300 (NEGATIVE); URINE YEAST FEW /hpf
[2025-01-08] VITALS: BP 122/74; O2SAT 95
[2025-01-08 08:09] VITALS: BP 127/77; O2SAT 96
[2025-01-08] MEDS ORDERED: PREDNISONE 5 MG TABLET PO SCH (09:00)
[2025-01-08] MEDS ORDERED: CEFTRIAXONE SODIUM 2,000 MG in DEXTROSE 5 % IN WATER 100 ML IV SCH (09:00)
[2025-01-08] MEDS ORDERED: SOD FERRIC GLUC COMPLX/SUCROSE 62.5 MG/5 ML AMPUL IV SCH (09:00)
[2025-01-08 16:10] VITALS: BP 124/74; O2SAT 97
[2025-01-08 16:14] VITALS: BP 147/77; O2SAT 97
[2025-01-09] VITALS: BP 145/76; O2SAT 95
[2025-01-09] MEDS ORDERED: HYDROCORTISONE SODIUM SUCC/PF 100 MG VIAL IV NR (06:00)
[2025-01-09 08:00] VITALS: BP 130/81; O2SAT 95
[2025-01-09] MEDS ORDERED: CEFTRIAXONE SODIUM 2,000 MG VIAL ONE (11:26)
[2025-01-09] MEDS ORDERED: METRONIDAZOLE/SODIUM CHLORIDE 500 MG/100 ML PIGGYBACK IV ONE ×2 (11:27→13:45)
[2025-01-09] MEDS ORDERED: CHLORHEXIDINE GLUCONATE 120 ML BOTTLE TOP ONE ×2 (12:40→13:45)
[2025-01-09] MEDS ORDERED: POVIDONE-IODINE 118 ML BOTT TOP ONE ×2 (13:11→13:45)
[2025-01-09] MEDS ORDERED: CEFTRIAXONE SODIUM 2,000 MG VIAL IV ONE (13:45)
[2025-01-09] MEDS ORDERED: VISTASEAL DUAL APPICATOR 1 EACH APPL TOP ONE ×2 (15:25→15:45)
[2025-01-09] MEDS ORDERED: THROMBIN,HU/FIBRINOGEN/CALCIUM 10 ML SYRINGE TOP ONE ×2 (15:34→15:45)
[2025-01-09] MEDS ORDERED: SUGAMMADEX SODIUM 200 MG/2 ML VIAL IV ONE ×2 (17:05→17:30)
[2025-01-09 18:25] VITALS: BP 174/86; O2SAT 100
[2025-01-09] MEDS ORDERED: MORPHINE SULFATE 4 MG/ML CARTRIDGE IV PRN (19:30)
[2025-01-09] MEDS ORDERED: ONDANSETRON HCL 2 MG/ML VIAL IV PRN (19:30)
[2025-01-09] MEDS ORDERED: 0.9 % SODIUM CHLORIDE 1,000 ML IV SCH (19:30)
[2025-01-09 20:00] VITALS: BP 154/87; O2SAT 100
[2025-01-09 20:21] LABS: HEMATOCRIT 43.7 % (36.0-45.00); HEMOGLOBIN 14.1 g/dL (12.0-15.00); MEAN CELL VOLUME 86.5 fL (80.00-100.00); MEAN CORPUSCULAR HEMOGLOBIN 27.8 pg (27.00-32.0); MEAN CORPUSCULAR HGB CONC 32.2 g/dl (32.0-36.0); PLATELET COUNT 296 K/uL (150-450); RED BLOOD COUNT 5.05 M/uL (4.00-6.00); RED CELL DISTRIBUTION WIDTH 17.1 % (11.5-14.5)
[2025-01-09 20:23] LABS: ABG PH 7.398 (7.35-7.45); ABG PO2 275.6 mmHg (80-100); ABG pCO2 27.5 mmHg (35-45); BASE EXCESS -6.6 mmol/l; BICARBONATE 16.6 mmol/l (23-25); SaO2 99.9 %; Tco2 17.4 mmol/l
[2025-01-09 20:29] LABS: allen test SATISFACTORY; mode MECHANI VENTILATOR; puncture site RADIAL LEFT
[2025-01-09 20:30] LABS: o2 100 %
[2025-01-09 20:55] LABS: ALBUMIN 2.5 gm/dL (3.4-5.0); CALCIUM 8.4 mg/dL (8.5-10.1); CREATININE SERUM 0.93 mg/dL (0.55-1.02); GFR 57.44; PHOSPHOROUS 4.1 mg/dL (2.5-4.9); POTASSIUM 3.85 mEq/L (3.5-5.1)
[2025-01-09] MEDS ORDERED: FAMOTIDINE/PF 20 MG/2 ML VIAL IV PUSH SCH (21:00)
[2025-01-09 21:16] LABS: MAGNESIUM 1.4 mg/dL (1.8-2.4)
[2025-01-09 23:20] VITALS: BP 137/74; O2SAT 100
[2025-01-10] MEDS ORDERED: HYDROCORTISONE SODIUM SUCC/PF 100 MG VIAL IV SCH
[2025-01-10 04:00] VITALS: BP 93/82; O2SAT 99
[2025-01-10] MEDS ORDERED: MAGNESIUM SULFATE IN WATER 50 ML IV NR ×2 (06:30→11:30)
[2025-01-10 07:11] VITALS: BP 132/80; O2SAT 100
[2025-01-10 07:50] LABS: HEMATOCRIT 41.6 % (36.0-45.00); HEMOGLOBIN 13.5 g/dL (12.0-15.00); MEAN CELL VOLUME 86.6 fL (80.00-100.00); MEAN CORPUSCULAR HEMOGLOBIN 28.1 pg (27.00-32.0); MEAN CORPUSCULAR HGB CONC 32.4 g/dl (32.0-36.0); PLATELET COUNT 307 K/uL (150-450); RED CELL DISTRIBUTION WIDTH 16.8 % (11.5-14.5)
[2025-01-10 08:29] LABS: ALBUMIN 2.3 gm/dL (3.4-5.0); CALCIUM 8.2 mg/dL (8.5-10.1); CREATININE SERUM 1.11 mg/dL (0.55-1.02); GFR 46.83; PHOSPHOROUS 4.3 mg/dL (2.5-4.9); POTASSIUM 4.4 mEq/L (3.5-5.1)
[2025-01-10 08:44] LABS: MAGNESIUM 1.3 mg/dL (1.8-2.4)
[2025-01-10 10:04] LABS: ABG PO2 185.2 mmHg (80-100); BASE EXCESS -12.8 mmol/l; BICARBONATE 18.6 mmol/l (23-25); SaO2 98.7 %; Tco2 20.7 mmol/l
[2025-01-10] MEDS ORDERED: 0.9 % SODIUM CHLORIDE 500 ML IV SCH (10:45)
[2025-01-10 12:00] VITALS: BP 163/86; O2SAT 100
[2025-01-10] MEDS ORDERED: EMOLLIENT COMBINATION NO.92 2.5 OZ BOTTLE TOP SCH (13:00)
[2025-01-10 15:08] VITALS: BP 163/86; O2SAT 100
[2025-01-10 15:25] LABS: ABG PH 7.058 (7.35-7.45); ABG pCO2 67.4 mmHg (35-45); allen test SATISFACTORY; mode MECHANI VENTILATOR; o2 50 %; puncture site RADIAL LEFT
[2025-01-10] MEDS ORDERED: ENOXAPARIN SODIUM 40 MG/0.4 ML SYRINGE SUBCUTANEO SCH (17:00)
[2025-01-10] MEDS ORDERED: METRONIDAZOLE/SODIUM CHLORIDE 100 ML IV SCH (17:00)
[2025-01-10] MEDS ORDERED: MEROPENEM 500 MG/VIAL VIAL IV SCH (17:00)
[2025-01-10 18:47] LABS: PH,URINE 5.5 (5.0-8.0); URINE APPEARANCE Turbid; URINE BILIRRUBIN Small (NEGATIVE); URINE BLOOD Large; URINE COLOR Orange; URINE GLUCOSE Negative (NEGATIVE); URINE KETONE Negative (NEGATIVE); URINE LEUKOCYTE Small; URINE NITRATE Positive; URINE UROBILINOGEN 0.2 E.U./dl
[2025-01-10 18:50] LABS: URINE BACTERIA 203.1 uL (0.0-1933); URINE CAST 2.91 uL (0.0-1.40); URINE EPITHELIAL CELLS 8.5 uL (0.0-38.8); URINE WBC 100.3 uL (0.0-23.2)
[2025-01-10 19:31] LABS: URINE PROTEIN 100 (NEGATIVE); URINE RBC > 10558.9 uL (0.0-20.8)
[2025-01-10 19:32] LABS: URINE YEAST FEW /hpf
[2025-01-10] MEDS ORDERED: IMMUN GLOB G(IGG)/GLY/IGA OV50 20 G/200 ML VIAL IV SCH (19:43)
[2025-01-10 20:00] VITALS: BP 133/70; O2SAT 100
[2025-01-10] MEDS ORDERED: VANCOMYCIN HCL 1,000 MG VIAL IV SCH (21:00)
[2025-01-10] MEDS ORDERED: VANCOMYCIN HCL 1,000 MG VIAL ONE (21:14)
[2025-01-10 23:26] VITALS: BP 137/64; O2SAT 100
[2025-01-11 04:00] VITALS: BP 143/67; O2SAT 100
[2025-01-11 06:37] LABS: HEMATOCRIT 33.5 % (36.0-45.00); MEAN CELL VOLUME 85.8 fL (80.00-100.00); MEAN CORPUSCULAR HEMOGLOBIN 28.1 pg (27.00-32.0); MEAN CORPUSCULAR HGB CONC 32.8 g/dl (32.0-36.0); PLATELET COUNT 277 K/uL (150-450); RED BLOOD COUNT 3.91 M/uL (4.00-6.00); RED CELL DISTRIBUTION WIDTH 17.1 % (11.5-14.5)
[2025-01-11 07:04] VITALS: BP 129/68; O2SAT 100
[2025-01-11 07:31] LABS: ALBUMIN 1.8 gm/dL (3.4-5.0); BILIRUBIN TOTAL 0.39 mg/dL (0.3-1.2); CALCIUM 7.6 mg/dL (8.5-10.1); CREATININE SERUM 0.96 mg/dL (0.55-1.02); GFR 55.37; GLOBULINA 3.9 G/DL (2.4-3.5); MAGNESIUM 2.2 mg/dL (1.8-2.4); POTASSIUM 3.98 mEq/L (3.5-5.1); TOTAL PROTEIN 5.7 gm/dL (6.4-8.2)
[2025-01-11 07:34] LABS: C-REACTIVE PROTEIN 8.58 MG/DL (0.00-0.29)
[2025-01-11] MEDS ORDERED: PHENOL 177 ML BOTTLE MM SCH (09:00)
[2025-01-11] MEDS ORDERED: ENOXAPARIN SODIUM 30 MG/0.3 ML SYRINGE SUBCUTANEO SCH (09:00)
[2025-01-11] MEDS ORDERED: POTASSIUM PHOS,M-BASIC-D-BASIC 15 MM in 0.9 % SODIUM CHLORIDE 250 ML IV NR (09:00)
[2025-01-11] MEDS ORDERED: ENOXAPARIN SODIUM 40 MG/0.4 ML SYRINGE SUBCUTANEO SCH (09:00)
[2025-01-11] MEDS ORDERED: LACTOBACILLUS ACIDOPHILUS 1 CAP CAP PO SCH (09:00)
[2025-01-11] MEDS ORDERED: ACETAMINOPHEN 500 MG GEL..CAP PO SCH (09:00)
[2025-01-11] MEDS ORDERED: NYSTATIN 30 GM CREAM.GM. TOP SCH (09:00)
[2025-01-11 11:19] LABS: ABG PH 7.391 (7.35-7.45); ABG pCO2 28.1 mmHg (35-45); BASE EXCESS -6.7 mmol/l; BICARBONATE 16.7 mmol/l (23-25); SaO2 99.7 %; Tco2 17.5 mmol/l
[2025-01-11] MEDS ORDERED: HYDROCORTISONE SODIUM SUCC/PF 50 MG/ML ML IV SCH (12:00)
[2025-01-11 12:02] VITALS: BP 111/77; O2SAT 100
[2025-01-11] MEDS ORDERED: FLUCONAZOLE IN NACL,ISO-OSM 400 MG/200 ML PIGGYBAG IV NR (14:30)
[2025-01-11 15:24] VITALS: BP 141/64; O2SAT 100
[2025-01-11 16:12] LABS: allen test SATISFACTORY; mode MECHANI VENTILATOR; o2 50 %; puncture site RADIAL RIGHT
[2025-01-11 20:00] VITALS: BP 143/72; O2SAT 100
[2025-01-11] MEDS ORDERED: VANCOMYCIN HCL 5 MG/ML REDILUIDO IV SCH (21:00)
[2025-01-11 23:30] VITALS: BP 139/61; O2SAT 100
[2025-01-12 04:00] VITALS: BP 126/55; O2SAT 100
[2025-01-12 07:00] VITALS: BP 142/53; O2SAT 96
[2025-01-12] MEDS ORDERED: METHYLPREDNISOLONE SOD SUCC 40 MG VIAL IV SCH (09:00)
[2025-01-12 09:44] LABS: HEMATOCRIT 33.9 % (36.0-45.00); HEMOGLOBIN 10.8 g/dL (12.0-15.00); MEAN CORPUSCULAR HGB CONC 31.8 g/dl (32.0-36.0); PLATELET COUNT 254 K/uL (150-450); RED BLOOD COUNT 3.85 M/uL (4.00-6.00); RED CELL DISTRIBUTION WIDTH 17.3 % (11.5-14.5)
[2025-01-12 10:38] LABS: ALBUMIN 1.8 gm/dL (3.4-5.0); BILIRUBIN TOTAL 0.32 mg/dL (0.3-1.2); CALCIUM 7.6 mg/dL (8.5-10.1); CREATININE SERUM 0.67 mg/dL (0.55-1.02); GFR 83.85; GLOBULINA 4.1 G/DL (2.4-3.5); PHOSPHOROUS 2.3 mg/dL (2.5-4.9); POTASSIUM 3.26 mEq/L (3.5-5.1); TOTAL PROTEIN 5.9 gm/dL (6.4-8.2)
[2025-01-12] MEDS ORDERED: FLUCONAZOLE IN NACL,ISO-OSM 100 ML IV SCH (12:00)
[2025-01-12] MEDS ORDERED: POTASSIUM CHLORIDE 20MEQ/100ML H2O PB IV NR (14:40)
[2025-01-12 16:00] VITALS: BP 138/64; O2SAT 100
[2025-01-12] MEDS ORDERED: POTASSIUM PHOS,M-BASIC-D-BASIC 18 MM in 0.9 % SODIUM CHLORIDE 250 ML IV NR (17:00)
[2025-01-12] MEDS ORDERED: POTASSIUM CHLORIDE 20MEQ/100ML H2O PB IV ONE (19:30)
[2025-01-12 21:00] VITALS: BP 150/60; O2SAT 100
[2025-01-12 23:09] VITALS: BP 167/68; O2SAT 97
[2025-01-13 04:00] VITALS: BP 139/62; O2SAT 99
[2025-01-13 07:24] VITALS: O2SAT 98
[2025-01-13] MEDS ORDERED: METHYLPREDNISOLONE SOD SUCC 40 MG VIAL IV SCH (09:00)
[2025-01-13] MEDS ORDERED: NYSTATIN 15 GM,ZINC OXIDE 30 GM,SILVER SULFADIAZINE 50 GM TOP SCH (09:00)
[2025-01-13] MEDS ORDERED: SODIUM CHLORIDE 0.45 % 1,000 ML IV SCH (10:30)
[2025-01-13 12:00] VITALS: BP 172/77; O2SAT 97
[2025-01-13] MEDS ORDERED: NYSTATIN 30 GM,ZINC OXIDE 30 GM,SILVER SULFADIAZINE 50 GM TOP SCH (13:00)
[2025-01-13 14:47] VITALS: BP 168/75; O2SAT 100
[2025-01-13 15:10] VITALS: BP 165/70; O2SAT 98
[2025-01-13] MEDS ORDERED: AMINO ACIDS/PROTEIN HYDROLYS 30 ML BLIST.PACK PO SCH (17:00)
[2025-01-13] MEDS ORDERED: hydrALAZINE HCL 20 MG VIAL IV PRN (18:45)
[2025-01-13 20:00] VITALS: BP 159/65; O2SAT 100
[2025-01-13] MEDS ORDERED: LEVALBUTEROL HCL 0.63 MG/3 ML SOLUTION IH SCH (22:33)
[2025-01-14] VITALS (15 sets, daily range): BP systolic 75–159; BP diastolic 46–75; O2SAT 100
[2025-01-14] MEDS ORDERED: PROPOFOL 10,000 MCG/ML VIAL ONE (01:14)
[2025-01-14] MEDS ORDERED: PROPOFOL 10,000 MCG/ML VIAL IV PUSH STA (02:08)
[2025-01-14] MEDS ORDERED: MIDAZOLAM HCL 50 MG in 0.9 % SODIUM CHLORIDE 50 ML IV SCH (02:15)
[2025-01-14 02:53] LABS: ABG PH 7.391 (7.35-7.45); ABG PO2 203.1 mmHg (80-100); ABG pCO2 34.4 mmHg (35-45); BASE EXCESS -3.7 mmol/l; BICARBONATE 20.4 mmol/l (23-25); SaO2 99.7 %; Tco2 21.4 mmol/l
[2025-01-14 02:55] LABS: allen test NO SATISFACTORY; mode MECHANI VENTILATOR; o2 100 %; puncture site RADIAL RIGHT
[2025-01-14 07:25] LABS: ALBUMIN 1.7 gm/dL (3.4-5.0); BILIRUBIN TOTAL 0.41 mg/dL (0.3-1.2); CALCIUM 7.8 mg/dL (8.5-10.1); CREATININE SERUM 0.73 mg/dL (0.55-1.02); GFR 75.95; GLOBULINA 4.8 G/DL (2.4-3.5); MAGNESIUM 1.6 mg/dL (1.8-2.4); TOTAL PROTEIN 6.5 gm/dL (6.4-8.2)
[2025-01-14 07:26] LABS: HEMATOCRIT 37.3 % (36.0-45.00); HEMOGLOBIN 12.8 g/dL (12.0-15.00); MEAN CELL VOLUME 85.2 fL (80.00-100.00); MEAN CORPUSCULAR HEMOGLOBIN 29.1 pg (27.00-32.0); MEAN CORPUSCULAR HGB CONC 34.2 g/dl (32.0-36.0); PLATELET COUNT 277 K/uL (150-450); RED BLOOD COUNT 4.38 M/uL (4.00-6.00)
[2025-01-14 07:40] LABS: POTASSIUM 2.76 mEq/L (3.5-5.1)
[2025-01-14 07:43] LABS: PHOSPHOROUS 1.4 mg/dL (2.5-4.9)
[2025-01-14] MEDS ORDERED: POLYVINYL ALCOHOL 15 ML DROPS OP SCH (09:00)
[2025-01-14] MEDS ORDERED: MAGNESIUM SULFATE IN WATER 50 ML IV NR (09:00)
[2025-01-14] MEDS ORDERED: PANTOPRAZOLE SODIUM 40 MG/VIAL VIAL IV PUSH SCH (09:00)
[2025-01-14] MEDS ORDERED: CHLORHEXIDINE GLUCONATE 15ML BRUSH KIT MM SCH (09:00)
[2025-01-14 09:34] LABS: C-REACTIVE PROTEIN 2.03 MG/DL (0.00-0.29)
[2025-01-14 09:41] LABS: ABG PH 7.474 (7.35-7.45); ABG pCO2 30.6 mmHg (35-45); BASE EXCESS -0.6 mmol/l; BICARBONATE 21.9 mmol/l (23-25); SaO2 99.8 %; Tco2 22.9 mmol/l
[2025-01-14 09:52] LABS: allen test SATISFACTORY; mode MECHANI VENTILATOR; o2 70 %; puncture site RADIAL RIGHT
[2025-01-14] MEDS ORDERED: HYDROCORTISONE SODIUM SUCC/PF 100 MG VIAL IV STA (10:55)
[2025-01-14] MEDS ORDERED: POTASSIUM CHLORIDE 20MEQ/100ML H2O PB IV NR (11:00)
[2025-01-14] MEDS ORDERED: NOREPINEPHRINE BITARTRATE 8 MG in DEXTROSE 5 % IN WATER 250 ML IV SCH (11:15)
[2025-01-14] MEDS ORDERED: 0.9 % SODIUM CHLORIDE 1,000 ML IV SCH (12:45)
[2025-01-14] MEDS ORDERED: SULFAMETHOXAZOLE/TRIMETHOPRIM 16 MG/ML 10ML VIAL IV SCH (17:00)
[2025-01-14] MEDS ORDERED: POTASSIUM PHOS,M-BASIC-D-BASIC 15 MM in 0.9 % SODIUM CHLORIDE 250 ML IV ONE (17:00)
[2025-01-14] MEDS ORDERED: MEROPENEM 500 MG/VIAL VIAL IV SCH (18:00)
[2025-01-14] MEDS ORDERED: HYDROCORTISONE SODIUM SUCC/PF 50 MG/ML ML IV SCH (18:00)
[2025-01-15] VITALS (7 sets, daily range): BP systolic 132–153; BP diastolic 58–68; O2SAT 98–100
[2025-01-15 06:21] LABS: PH,URINE 6.5 (5.0-8.0); URINE APPEARANCE Clear; URINE BILIRRUBIN Negative (NEGATIVE); URINE BLOOD Negative; URINE COLOR Dark Yellow; URINE GLUCOSE Negative (NEGATIVE); URINE KETONE Trace (NEGATIVE); URINE LEUKOCYTE Trace; URINE NITRATE Negative; URINE PROTEIN 30 (NEGATIVE)
[2025-01-15 06:23] LABS: URINE BACTERIA 34.2 uL (0.0-1933); URINE WBC 38.1 uL (0.0-23.2)
[2025-01-15 07:03] LABS: URINE CAST 1.17 uL (0.0-1.40); URINE CRYSTALS FEW /HPF; URINE YEAST MODERATE /hpf
[2025-01-15 08:35] LABS: ABG PH 7.478 (7.35-7.45); ABG PO2 104.1 mmHg (80-100); BASE EXCESS -0.6 mmol/l; BICARBONATE 21.7 mmol/l (23-25); SaO2 98.4 %; Tco2 22.6 mmol/l
[2025-01-15 13:35] LABS: ALBUMIN 1.6 gm/dL (3.4-5.0); BILIRUBIN TOTAL 0.35 mg/dL (0.3-1.2); CALCIUM 7.7 mg/dL (8.5-10.1); CREATININE SERUM 0.83 mg/dL (0.55-1.02); GFR 65.49; TOTAL PROTEIN 6.6 gm/dL (6.4-8.2)
[2025-01-15 13:42] LABS: POTASSIUM 2.65 mEq/L (3.5-5.1)
[2025-01-15] MEDS ORDERED: MAGNESIUM SULFATE IN WATER 50 ML IV NR (14:15)
[2025-01-15] MEDS ORDERED: POTASSIUM CHLORIDE 20MEQ/100ML H2O PB IV NR (14:30)
[2025-01-15] MEDS ORDERED: FUROsemide 20 MG/2 ML VIAL IV SCH (14:42)
[2025-01-15 15:00] LABS: o2 40 %
[2025-01-15 15:01] LABS: allen test SATISFACTORY; puncture site RADIAL RIGHT
[2025-01-15 15:02] LABS: mode MECHANI VENTILATOR
[2025-01-16 04:05] VITALS: BP 124/65; O2SAT 100
[2025-01-16 06:14] LABS: HEMOGLOBIN 10.6 g/dL (12.0-15.00); MEAN CELL VOLUME 85.3 fL (80.00-100.00); MEAN CORPUSCULAR HEMOGLOBIN 28.3 pg (27.00-32.0); MEAN CORPUSCULAR HGB CONC 33.2 g/dl (32.0-36.0); PLATELET COUNT 270 K/uL (150-450); RED BLOOD COUNT 3.75 M/uL (4.00-6.00); RED CELL DISTRIBUTION WIDTH 18.1 % (11.5-14.5)
[2025-01-16 07:00] LABS: CALCIUM 7.7 mg/dL (8.5-10.1); CREATININE SERUM 1.03 mg/dL (0.55-1.02); GFR 51.05; MAGNESIUM 2.4 mg/dL (1.8-2.4)
[2025-01-16 07:15] LABS: POTASSIUM 2.53 mEq/L (3.5-5.1)
[2025-01-16 07:16] LABS: PHOSPHOROUS 1.2 mg/dL (2.5-4.9)
[2025-01-16] MEDS ORDERED: POTASSIUM CHLORIDE 20MEQ/100ML H2O PB IV SCH (08:00)
[2025-01-16] MEDS ORDERED: METHYLPREDNISOLONE SOD SUCC 40 MG VIAL IV SCH (09:00)
[2025-01-16 09:33] LABS: ABG PO2 146.2 mmHg (80-100); ABG pCO2 43.3 mmHg (35-45); BASE EXCESS 0.4 mmol/l; BICARBONATE 25.6 mmol/l (23-25); SaO2 99.2 %
[2025-01-16 09:47] LABS: allen test SATISFACTORY; mode MECHANI VENTILATOR; o2 40 %; puncture site RADIAL RIGHT
[2025-01-16 11:53] VITALS: BP 109/69; O2SAT 92
[2025-01-16] MEDS ORDERED: CEFTAZIDIME/AVIBACTAM 1.25GM/100ML NSS PB IV SCH (13:00)
[2025-01-16 16:00] VITALS: BP 116/58; O2SAT 100
[2025-01-16 20:00] VITALS: BP 136/58; O2SAT 100
[2025-01-16] MEDS ORDERED: POTASSIUM PHOS,M-BASIC-D-BASIC 15 MM in 0.9 % SODIUM CHLORIDE 250 ML IV ONE (20:00)
[2025-01-16 23:09] VITALS: BP 149/70; O2SAT 100
[2025-01-17] MEDS ORDERED: POTASSIUM CHLORIDE 20MEQ/100ML H2O PB IV ONE (00:33)
[2025-01-17 04:00] VITALS: BP 119/63; O2SAT 99
[2025-01-17 07:32] VITALS: BP 152/81; O2SAT 98
[2025-01-17 08:35] LABS: ABG PH 7.485 (7.35-7.45); ABG PO2 90.9 mmHg (80-100); ABG pCO2 31.9 mmHg (35-45); BICARBONATE 23.5 mmol/l (23-25); SaO2 97.7 %; Tco2 24.5 mmol/l
[2025-01-17] MEDS ORDERED: FAMOTIDINE/PF 20 MG/2 ML VIAL IV PUSH SCH (09:00)
[2025-01-17 10:01] LABS: allen test SATISFACTORY; puncture site RADIAL RIGHT
[2025-01-17 10:02] LABS: mode MECHANI VENTILATOR; o2 40 %
[2025-01-17 10:23] LABS: CALCIUM 7.8 mg/dL (8.5-10.1); CREATININE SERUM 0.98 mg/dL (0.55-1.02); GFR 54.07; MAGNESIUM 2.2 mg/dL (1.8-2.4); POTASSIUM 3.07 mEq/L (3.5-5.1)
[2025-01-17 10:29] LABS: PHOSPHOROUS 1.7 mg/dL (2.5-4.9)
[2025-01-17 10:36] LABS: ABG PH 7.309 (7.35-7.45); ABG PO2 101.5 mmHg (80-100); ABG pCO2 49.6 mmHg (35-45); BASE EXCESS -2.5 mmol/l; BICARBONATE 24.3 mmol/l (23-25); Tco2 25.9 mmol/l
[2025-01-17] MEDS ORDERED: POTASSIUM PHOS,M-BASIC-D-BASIC 3 MM/ML VIAL IV NR (11:00)
[2025-01-17 11:25] LABS: allen test SATISFACTORY; mode MECHANI VENTILATOR; o2 40 %; puncture site RADIAL RIGHT
[2025-01-17] MEDS ORDERED: POTASSIUM CHLORIDE 20MEQ/100ML H2O PB IV NR (12:30)
[2025-01-17 12:50] LABS: ABG PH 7.436 (7.35-7.45); ABG PO2 407.6 mmHg (80-100); ABG pCO2 35.1 mmHg (35-45); BASE EXCESS -0.5 mmol/l; BICARBONATE 23.1 mmol/l (23-25); Tco2 24.2 mmol/l
[2025-01-17 13:08] LABS: puncture site RADIAL RIGHT
[2025-01-17 13:09] LABS: allen test SATISFACTORY; mode BPAP
[2025-01-17 13:10] LABS: o2 100 %
[2025-01-17 16:00] VITALS: BP 153/60; O2SAT 100
[2025-01-17] MEDS ORDERED: PANTOPRAZOLE SODIUM 40 MG/VIAL VIAL IV PUSH SCH (17:00)
[2025-01-17 20:00] VITALS: BP 150/80; O2SAT 100
[2025-01-17 23:27] VITALS: BP 163/63; O2SAT 98
[2025-01-18 04:00] VITALS: BP 147/56; O2SAT 100
[2025-01-18 07:11] LABS: MEAN CELL VOLUME 85.4 fL (80.00-100.00); MEAN CORPUSCULAR HGB CONC 33.4 g/dl (32.0-36.0); PLATELET COUNT 319 K/uL (150-450); RED BLOOD COUNT 3.27 M/uL (4.00-6.00)
[2025-01-18 07:16] LABS: HEMOGLOBIN 9.3 g/dL (12.0-15.00); MEAN CORPUSCULAR HEMOGLOBIN 28.4 pg (27.00-32.0)
[2025-01-18 07:23] LABS: CALCIUM 7.9 mg/dL (8.5-10.1); GFR 52.82; MAGNESIUM 1.8 mg/dL (1.8-2.4); POTASSIUM 3.73 mEq/L (3.5-5.1)
[2025-01-18 07:30] VITALS: BP 147/56; O2SAT 100
[2025-01-18 07:55] LABS: PHOSPHOROUS 1.6 mg/dL (2.5-4.9)
[2025-01-18 08:42] LABS: ABG PH 7.541 (7.35-7.45); ABG PO2 190.6 mmHg (80-100); ABG pCO2 25.4 mmHg (35-45); BASE EXCESS 0.5 mmol/l; BICARBONATE 21.3 mmol/l (23-25); SaO2 99.8 %; Tco2 22.1 mmol/l; allen test SATISFACTORY; mode BPAP; puncture site RADIAL RIGHT
[2025-01-18 08:43] LABS: o2 60 %
[2025-01-18] MEDS ORDERED: METHYLPREDNISOLONE SOD SUCC 40 MG VIAL IV SCH (09:00)
[2025-01-18] MEDS ORDERED: POTASSIUM PHOS,M-BASIC-D-BASIC 15 MM in 0.9 % SODIUM CHLORIDE 250 ML IV NR (10:30)
[2025-01-18 12:00] VITALS: BP 151/71; O2SAT 100
[2025-01-18 12:35] LABS: ABG PH 7.473 (7.35-7.45); ABG PO2 115.2 mmHg (80-100); ABG pCO2 31.8 mmHg (35-45); BASE EXCESS 0.1 mmol/l; BICARBONATE 22.7 mmol/l (23-25); SaO2 98.8 %; Tco2 23.7 mmol/l
[2025-01-18 12:40] LABS: allen test SATISFACTORY; mode VENTURY MASK; puncture site RADIAL RIGHT
[2025-01-18 12:41] LABS: o2 50 %
[2025-01-18 15:28] VITALS: BP 164/77; O2SAT 100
[2025-01-18 20:00] VITALS: BP 153/70; O2SAT 99
[2025-01-18] MEDS ORDERED: DILTIAZEM HCL 30 MG TABLET PO SCH (21:00)
[2025-01-18 23:14] VITALS: BP 137/72; O2SAT 98
[2025-01-19 04:00] VITALS: BP 145/60; O2SAT 98
[2025-01-19 07:07] VITALS: BP 162/70; O2SAT 98
[2025-01-19 16:09] VITALS: BP 150/81; O2SAT 95
[2025-01-19] MEDS ORDERED: LACTOBACILLUS ACIDOPHILUS 1 CAP CAP PO SCH (17:00)
[2025-01-19 21:24] VITALS: O2SAT 96
[2025-01-20] VITALS (9 sets, daily range): BP systolic 151–167; BP diastolic 76–84; O2SAT 92–97
[2025-01-20] MEDS ORDERED: DILTIAZEM HCL 60 MG TABLET PO SCH (05:00)
[2025-01-20 07:37] LABS: HEMATOCRIT 26.5 % (36.0-45.00); MEAN CELL VOLUME 87.3 fL (80.00-100.00); PLATELET COUNT 299 K/uL (150-450); RED BLOOD COUNT 3.03 M/uL (4.00-6.00); RED CELL DISTRIBUTION WIDTH 19.4 % (11.5-14.5)
[2025-01-20 07:44] LABS: HEMOGLOBIN 8.7 g/dL (12.0-15.00); MEAN CORPUSCULAR HEMOGLOBIN 28.7 pg (27.00-32.0)
[2025-01-20 08:27] LABS: CREATININE SERUM 0.9 mg/dL (0.55-1.02); GFR 59.65; MAGNESIUM 1.5 mg/dL (1.8-2.4); POTASSIUM 3.84 mEq/L (3.5-5.1)
[2025-01-20 09:53] LABS: PHOSPHOROUS 1.1 mg/dL (2.5-4.9)
[2025-01-20] MEDS ORDERED: MAGNESIUM SULFATE IN WATER 50 ML IV NR (12:00)
[2025-01-20] MEDS ORDERED: SOD FERRIC GLUC COMPLX/SUCROSE 62.5 MG in 0.9 % SODIUM CHLORIDE 50 ML IV SCH (12:00)
[2025-01-20] MEDS ORDERED: Cyanocobalamin/Mecobalamin 1 TAB.SL SL NR (12:00)
[2025-01-20] MEDS ORDERED: POTASSIUM PHOS,M-BASIC-D-BASIC 15 MM in 0.9 % SODIUM CHLORIDE 250 ML IV ONE (14:00)
[2025-01-21] VITALS (8 sets, daily range): BP systolic 134–157; BP diastolic 74–83; O2SAT 90–98
[2025-01-21] MEDS ORDERED: Cyanocobalamin/Mecobalamin 1 TAB.SL SL SCH (09:00)
[2025-01-21 17:50] LABS: HEMATOCRIT 27.3 % (36.0-45.00); MEAN CELL VOLUME 87.5 fL (80.00-100.00); MEAN CORPUSCULAR HGB CONC 32.5 g/dl (32.0-36.0); PLATELET COUNT 312 K/uL (150-450); RED BLOOD COUNT 3.12 M/uL (4.00-6.00)
[2025-01-21 17:52] LABS: HEMOGLOBIN 8.9 g/dL (12.0-15.00); MEAN CORPUSCULAR HEMOGLOBIN 28.5 pg (27.00-32.0)
[2025-01-21 18:17] LABS: CREATININE SERUM 0.83 mg/dL (0.55-1.02); GFR 65.49; POTASSIUM 4.36 mEq/L (3.5-5.1)
[2025-01-21 18:29] LABS: MAGNESIUM 1.2 mg/dL (1.8-2.4); PHOSPHOROUS 0.8 mg/dL (2.5-4.9)
[2025-01-21] MEDS ORDERED: POTASSIUM PHOS,M-BASIC-D-BASIC 15 MM in 0.9 % SODIUM CHLORIDE 250 ML IV NR (19:00)
[2025-01-21] MEDS ORDERED: MAGNESIUM SULFATE IN WATER 50 ML IV NR (19:00)
[2025-01-22] VITALS (12 sets, daily range): BP systolic 116–150; BP diastolic 58–82; O2SAT 90–100
[2025-01-22] MEDS ORDERED: NYSTATIN 15 GM CREAM.GM. TOP PRN (15:00)
[2025-01-22] MEDS ORDERED: ZINC OXIDE 30 GM TUBE TOP PRN (15:00)
[2025-01-22] MEDS ORDERED: SILVER SULFADIAZINE 50 GM JAR TOP PRN (15:00)
[2025-01-22] MEDS ORDERED: SILVER SULFADIAZINE 50 GM,ZINC OXIDE 30 GM,NYSTATIN 15 GM TOP PRN (15:30)
[2025-01-22] MEDS ORDERED: MEGESTROL ACETATE 400 MG/10 ML BLIST PACK PO SCH (17:00)
[2025-01-22 18:23] LABS: URINE APPEARANCE Clear; URINE BILIRRUBIN Negative (NEGATIVE); URINE BLOOD Moderate; URINE COLOR Dark Yellow; URINE GLUCOSE Negative (NEGATIVE); URINE KETONE Negative (NEGATIVE); URINE LEUKOCYTE Negative; URINE NITRATE Positive; URINE PROTEIN 30 (NEGATIVE); URINE UROBILINOGEN 0.2 E.U./dl
[2025-01-22 18:26] LABS: URINE BACTERIA 47.7 uL (0.0-1933); URINE CAST 3.97 uL (0.0-1.40); URINE EPITHELIAL CELLS 34.3 uL (0.0-38.8); URINE RBC 264.4 uL (0.0-20.8); URINE WBC 27.8 uL (0.0-23.2)
[2025-01-22] MEDS ORDERED: CEFTAZIDIME/AVIBACTAM 1.25GM/100ML NSS PB IV SCH (21:00)
[2025-01-23] VITALS (7 sets, daily range): BP systolic 119–128; BP diastolic 71–79; O2SAT 93–98
[2025-01-23 01:05] LABS: hav igm Negative (Negative); hcv Non Reactive (Non Reactive); hep b c Negative (Negative); hep b s ag Negative (Negative)
[2025-01-23] MEDS ORDERED: PANTOPRAZOLE SODIUM 40 MG TABLET.DR PO SCH (06:00)
[2025-01-23 06:23] LABS: MEAN CELL VOLUME 86.9 fL (80.00-100.00); MEAN CORPUSCULAR HGB CONC 33.3 g/dl (32.0-36.0); PLATELET COUNT 243 K/uL (150-450); RED CELL DISTRIBUTION WIDTH 20.1 % (11.5-14.5)
[2025-01-23 06:24] LABS: HEMATOCRIT 23.5 % (36.0-45.00); MEAN CORPUSCULAR HEMOGLOBIN 28.8 pg (27.00-32.0)
[2025-01-23 06:27] LABS: HEMOGLOBIN 7.8 g/dL (12.0-15.00)
[2025-01-23] MEDS ORDERED: FUROsemide 20 MG/2 ML VIAL IV SCH (06:45)
[2025-01-23 07:07] LABS: CALCIUM 7.9 mg/dL (8.5-10.1); CREATININE SERUM 0.7 mg/dL (0.55-1.02); GFR 79.72; POTASSIUM 3.91 mEq/L (3.5-5.1)
[2025-01-23 07:40] LABS: MAGNESIUM 1.4 mg/dL (1.8-2.4)
[2025-01-23] MEDS ORDERED: FLUCONAZOLE 200 MG TABLET PO SCH (09:00)
[2025-01-23] MEDS ORDERED: MAGNESIUM SULFATE IN WATER 50 ML IV NR (09:00)
[2025-01-23] MEDS ORDERED: POTASSIUM PHOS,M-BASIC-D-BASIC 15 MM in 0.9 % SODIUM CHLORIDE 250 ML IV ONE (11:00)
[2025-01-24] VITALS (7 sets, daily range): BP systolic 118–133; BP diastolic 74–83; O2SAT 90–98
[2025-01-25] VITALS (9 sets, daily range): BP systolic 116–133; BP diastolic 68–79; O2SAT 88–99
[2025-01-25 08:39] LABS: HEMATOCRIT 36.7 % (36.0-45.00); MEAN CELL VOLUME 87.8 fL (80.00-100.00); MEAN CORPUSCULAR HGB CONC 33.2 g/dl (32.0-36.0); PLATELET COUNT 176 K/uL (150-450); RED BLOOD COUNT 4.18 M/uL (4.00-6.00); RED CELL DISTRIBUTION WIDTH 17.3 % (11.5-14.5)
[2025-01-25 08:51] LABS: HEMOGLOBIN 12.2 g/dL (12.0-15.00); MEAN CORPUSCULAR HEMOGLOBIN 29.1 pg (27.00-32.0)
[2025-01-25] MEDS ORDERED: NAPH,MB-DB/K PH,MBDB 1 PKT PACKET PO SCH (09:00)
[2025-01-25 09:11] LABS: ALBUMIN 1.8 gm/dL (3.4-5.0); BILIRUBIN TOTAL 0.33 mg/dL (0.3-1.2); CALCIUM 7.7 mg/dL (8.5-10.1); CREATININE SERUM 0.75 mg/dL (0.55-1.02); GFR 73.62; GLOBULINA 2.9 G/DL (2.4-3.5); POTASSIUM 4.27 mEq/L (3.5-5.1); TOTAL PROTEIN 4.7 gm/dL (6.4-8.2)
[2025-01-25 09:17] LABS: C-REACTIVE PROTEIN 1.02 MG/DL (0.00-0.29)
[2025-01-25 09:18] LABS: MAGNESIUM 1.2 mg/dL (1.8-2.4); PHOSPHOROUS 0.9 mg/dL (2.5-4.9)
[2025-01-25] MEDS ORDERED: POTASSIUM PHOS,M-BASIC-D-BASIC 3 MM/ML VIAL IV NR (09:45)
[2025-01-25] MEDS ORDERED: MAGNESIUM SULFATE IN WATER 4 GM/100 ML PIGGYBACK IV NR (09:45)
[2025-01-26 00:33] VITALS: BP 125/69; O2SAT 98
[2025-01-26 02:07] VITALS: O2SAT 90
[2025-01-26 08:43] VITALS: BP 126/55; O2SAT 98
[2025-01-26 15:35] VITALS: O2SAT 98
[2025-01-26 16:00] VITALS: BP 134/70; O2SAT 98
[2025-01-26 20:27] VITALS: O2SAT 97
[2025-01-27] VITALS (10 sets, daily range): BP systolic 125–150; BP diastolic 69–83; O2SAT 90–98
[2025-01-27 09:50] LABS: PLATELET ESTIMATE NORMAL (NORMAL)
[2025-01-28] VITALS (7 sets, daily range): BP systolic 114–139; BP diastolic 68–81; O2SAT 90–98
[2025-01-28] MEDS ORDERED: DOXYCYCLINE HYCLATE 100MG IV STA (12:35)
[2025-01-28] MEDS ORDERED: DOXYCYCLINE HYCLATE 100MG IV ONE ×2 (13:55→20:16)
[2025-01-28] MEDS ORDERED: DOXYCYCLINE HYCLATE 100MG IV SCH (21:00)
[2025-01-29 00:01] VITALS: BP 127/81; O2SAT 97
[2025-01-29 00:08] VITALS: O2SAT 97
[2025-01-29] MEDS ORDERED: DOXYCYCLINE HYCLATE 100MG IV ONE ×2 (08:18→14:14)
[2025-01-30] VITALS (7 sets, daily range): BP systolic 121–129; BP diastolic 73–79; O2SAT 97–99
[2025-01-30] MEDS ORDERED: DOXYCYCLINE HYCLATE 100MG IV ONE ×2 (07:59→14:06)
[2025-01-31 01:07] VITALS: BP 126/75; O2SAT 99
[2025-01-31 05:25] VITALS: O2SAT 99
[2025-01-31] MEDS ORDERED: DOXYCYCLINE HYCLATE 100MG IV ONE ×2 (06:54→15:22)
[2025-01-31 08:00] VITALS: BP 134/85; O2SAT 97
[2025-01-31] MEDS ORDERED: INTESTINEX680 M1 PO (08:16)
[2025-01-31] MEDS ORDERED: DOXYCYCLINE HY100 M2 PO (08:16)
[2025-01-31] MEDS ORDERED: MESTINON60 M1 PO (08:17)
[2025-01-31] MEDS ORDERED: INTEGRA F CAPS1 EACH PO (08:17)
[2025-01-31] MEDS ORDERED: PANTOPRAZOLE SO40 MG PO (08:18)
[2025-01-31] MEDS ORDERED: CARDIZEM60 MG PO (08:18)
[2025-01-31 09:59] VITALS: O2SAT 97
[2025-01-31 14:26] VITALS: O2SAT 98
[2025-01-31 16:31] VITALS: BP 134/85; O2SAT 97
[2025-02-01] VITALS: BP 139/85; O2SAT 98
[2025-02-01 02:00] VITALS: O2SAT 100
[2025-02-01 06:10] VITALS: O2SAT 99
[2025-02-01] MEDS ORDERED: DOXYCYCLINE HYCLATE 100MG IV ONE (06:50)
[2025-02-01 08:00] VITALS: BP 124/72; O2SAT 98
[2025-02-01 13:31] VITALS: O2SAT 90
== END 2025-02-01 14:45 | disposition home health service (06) | DRG 329 ==
LOC: SURG 01-07 13:55 → SURH 01-07 13:55 → ICU 01-07 13:55 → SURH 01-09 12:15 → ICU 01-09 18:16 → SURH 01-19 11:31 → ICU 01-19 12:06 → SURH 01-19 15:25
PROVIDERS: Internal Medicine; Internal Medicine Geriatric Medicine; Internal Medicine Infectious Disease; ADMIT Surgery; ATTEND Surgery
PROC: 02HV33Z Insertion of Infusion Device into Superior Vena Cava, Percutaneous Approach (ICD-10-PCS; 2025-01-08)
PROC: 0TPB8DZ Removal of Intraluminal Device from Bladder, Via Natural or Artificial Opening Endoscopic (ICD-10-PCS; 2025-01-09)
PROC: 0DBN4ZZ Excision of Sigmoid Colon, Percutaneous Endoscopic Approach (ICD-10-PCS; principal; 2025-01-10)
PROC: 0DBP4ZZ Excision of Rectum, Percutaneous Endoscopic Approach (ICD-10-PCS; 2025-01-10)
PROC: 0DNN4ZZ Release Sigmoid Colon, Percutaneous Endoscopic Approach (ICD-10-PCS; 2025-01-10)
PROC: 0DBB4ZZ Excision of Ileum, Percutaneous Endoscopic Approach (ICD-10-PCS; 2025-01-10)
PROC: 0D9680Z Drainage of Stomach with Drainage Device, Via Natural or Artificial Opening Endoscopic (ICD-10-PCS; 2025-01-11)
PROC: 3E0G76Z Introduction of Nutritional Substance into Upper GI, Via Natural or Artificial Opening (ICD-10-PCS; 2025-01-11)
PROC: BW21ZZZ Computerized Tomography (CT Scan) of Abdomen and Pelvis (ICD-10-PCS; 2025-01-11)
PROC: 30243N1 Transfusion of Nonautologous Red Blood Cells into Central Vein, Percutaneous Approach (ICD-10-PCS; 2025-01-11)
PROC: 0BH18EZ Insertion of Endotracheal Airway into Trachea, Via Natural or Artificial Opening Endoscopic (ICD-10-PCS; 2025-01-14)
PROC: 5A1955Z Respiratory Ventilation, Greater than 96 Consecutive Hours (ICD-10-PCS; 2025-01-14)
PROC: BW24YZZ Computerized Tomography (CT Scan) of Chest and Abdomen using Other Contrast (ICD-10-PCS; 2025-01-14)
PROC: B020ZZZ Computerized Tomography (CT Scan) of Brain (ICD-10-PCS; 2025-01-14)
PROC: B24BYZZ Ultrasonography of Heart with Aorta using Other Contrast (ICD-10-PCS; 2025-01-14)
PROC: 4A12X4Z Monitoring of Cardiac Electrical Activity, External Approach (ICD-10-PCS; 2025-01-19)
DX: K57.20 Diverticulitis of large intestine with perforation and abscess without bleeding (principal); A41.9 Sepsis, unspecified organism; G70.01 Myasthenia gravis with (acute) exacerbation; J96.90 Respiratory failure, unspecified, unspecified whether with hypoxia or hypercapnia; N39.0 Urinary tract infection, site not specified; J90 Pleural effusion, not elsewhere classified; J98.11 Atelectasis; E87.29 Other acidosis; L03.113 Cellulitis of right upper limb; K21.00 Gastro-esophageal reflux disease with esophagitis, without bleeding; I10 Essential (primary) hypertension; D64.9 Anemia, unspecified; Z79.52 Long term (current) use of systemic steroids; I11.9 Hypertensive heart disease without heart failure; B96.1 Klebsiella pneumoniae [K. pneumoniae] as the cause of diseases classified elsewhere; D72.829 Elevated white blood cell count, unspecified

== ENCOUNTER 2024-12-26 15:48 | Inpatient (IN) | payer OTHER ==
[~2024-12-26] VITALS: Ht 154.9 cm; Wt 55.8 kg
--- NOTE | 2024-12-26 16:19 | NUR ---
SE RECIBE PTE ALERTA Y ORIENTADA LA CUAL REFIERE VENIR POR DOLOR PELVICO DESDE HACE VARIOS WALSH Y NAUSEAS/VOMITOS. PTE OPERADA POR DR. SAMPSON RANGEL. SE MIDEN S/V A PTE Y SE UBICA.
[2024-12-26] MEDS ORDERED: 0.9 % SODIUM CHLORIDE 1,000 ML IV STA (18:55)
[2024-12-26] MEDS ORDERED: MORPHINE SULFATE 4 MG/ML VIAL IV STA (18:56)
[2024-12-26] MEDS ORDERED: KETOROLAC TROMETHAMINE 30 MG VIAL IV STA (18:56)
[2024-12-26] MEDS ORDERED: KETOROLAC TROMETHAMINE 30 MG VIAL ONE (19:20)
--- NOTE | 2024-12-26 19:42 | NUR ---
SE ORIENTA PTE SOBRE TX MEDICO EL CUAL REFIERE ENTENDER.SE LE EXTRAEN MUESTRAS BAJO MEDIDAS ASEPTICAS,SE CANALIZA Y SE ADMINISTRAN MEDICAMENTOS JACQUELINE ORDEN MEDICA.SE NOTIFICA CT PENDIENTE.
[2024-12-26 20:44] LABS: INR 1.09; PARTIAL THROMBOPLASTIN TIME 25.6 SECONDS (22.0-34.0); PROTHROMBIN TIME 11.8 SECONDS (9.0-11.5)
[2024-12-26 20:48] LABS: ALBUMIN 2.8 gm/dL (3.4-5.0); BILIRUBIN TOTAL 0.53 mg/dL (0.3-1.2); CREATININE SERUM 2.29 mg/dL (0.55-1.02); GFR 20.3; GLOBULINA 4.8 G/DL (2.4-3.5); TOTAL PROTEIN 7.6 gm/dL (6.4-8.2)
[2024-12-26 20:58] LABS: HEMATOCRIT 35.5 % (36.0-45.00); HEMOGLOBIN 11.5 g/dL (12.0-15.00); MEAN CELL VOLUME 87.7 fL (80.00-100.00); MEAN CORPUSCULAR HEMOGLOBIN 28.4 pg (27.00-32.0); MEAN CORPUSCULAR HGB CONC 32.3 g/dl (32.0-36.0); PLATELET COUNT 422 K/uL (150-450); RED BLOOD COUNT 4.05 M/uL (4.00-6.00); RED CELL DISTRIBUTION WIDTH 16.5 % (11.5-14.5)
[2024-12-26] MEDS ORDERED: levoFLOXacin 750 MG TABLET PO STA (22:37)
[2024-12-26] MEDS ORDERED: MEROPENEM 1,000 MG VIAL IV STA (22:42)
[2024-12-26 23:00] VITALS: BP 88/60; O2SAT 100
[2024-12-26] MEDS ORDERED: PYRIDOSTIGMINE BROMIDE 60 MG TABLET PO SCH (23:07)
[2024-12-26] MEDS ORDERED: 0.9 % SODIUM CHLORIDE 1,000 ML IV ONE (23:15)
[2024-12-26] MEDS ORDERED: 0.9 % SODIUM CHLORIDE 1,000 ML IV SCH (23:15)
[2024-12-27 02:50] LABS: INR 1.09; PARTIAL THROMBOPLASTIN TIME 27.2 SECONDS (22.0-34.0); PROTHROMBIN TIME 11.8 SECONDS (9.0-11.5)
[2024-12-27 03:07] LABS: PHOSPHOROUS 4.8 mg/dL (2.5-4.9)
[2024-12-27 03:11] LABS: MAGNESIUM 1.3 mg/dL (1.8-2.4)
[2024-12-27 03:13] LABS: C-REACTIVE PROTEIN 13.3 MG/DL (0.00-0.29)
[2024-12-27 04:35] LABS: URINE APPEARANCE Turbid; URINE BILIRRUBIN Small (NEGATIVE); URINE BLOOD Large; URINE COLOR Orange; URINE GLUCOSE Negative (NEGATIVE); URINE KETONE Trace (NEGATIVE); URINE LEUKOCYTE Large; URINE NITRATE Positive; URINE UROBILINOGEN 0.2 E.U./dl
[2024-12-27 04:49] LABS: URINE BACTERIA > 9821.5 uL (0.0-1933); URINE CAST > 21.83 uL (0.0-1.40); URINE PROTEIN 300 (NEGATIVE); URINE RBC > 10558.9 uL (0.0-20.8); URINE WBC > 5548.3 uL (0.0-23.2)
[2024-12-27] MEDS ORDERED: MEROPENEM 500 MG/VIAL VIAL IV SCH (05:00)
[2024-12-27 06:00] VITALS: BP 98/59
[2024-12-27 07:36] LABS: HEMATOCRIT 30.3 % (36.0-45.00); HEMOGLOBIN 9.7 g/dL (12.0-15.00); MEAN CELL VOLUME 88.8 fL (80.00-100.00); MEAN CORPUSCULAR HEMOGLOBIN 28.5 pg (27.00-32.0); MEAN CORPUSCULAR HGB CONC 32.1 g/dl (32.0-36.0); PLATELET COUNT 351 K/uL (150-450); RED BLOOD COUNT 3.41 M/uL (4.00-6.00); RED CELL DISTRIBUTION WIDTH 16.7 % (11.5-14.5)
[2024-12-27 07:59] VITALS: BP 121/68; O2SAT 99
[2024-12-27] MEDS ORDERED: PYRIDOSTIGMINE BROMIDE 60 MG TABLET PO SCH (08:00)
[2024-12-27] MEDS ORDERED: ENOXAPARIN SODIUM 40 MG/0.4 ML SYRINGE SUBCUTANEO SCH (09:00)
[2024-12-27] MEDS ORDERED: PREDNISONE 5 MG TABLET PO SCH (09:00)
[2024-12-27] MEDS ORDERED: IRON FUM,PS/FOLIC/BCOMP,C NO.9 1 CAP CAPSULE PO SCH (09:00)
[2024-12-27] MEDS ORDERED: ATENOLOL 25 MG TABLET PO SCH (09:00)
[2024-12-27 16:00] VITALS: BP 104/67; O2SAT 95
[2024-12-27] MEDS ORDERED: LINEZOLID IN DEXTROSE 5% 300 ML IV SCH (21:00)
[2024-12-27] MEDS ORDERED: FAMOTIDINE/PF 20 MG in 0.9 % SODIUM CHLORIDE 8 ML IV PUSH SCH (21:00)
[2024-12-28 00:16] VITALS: BP 134/76; O2SAT 98
[2024-12-28 04:09] LABS: HEMATOCRIT 30.6 % (36.0-45.00); MEAN CELL VOLUME 86.8 fL (80.00-100.00); MEAN CORPUSCULAR HGB CONC 32.6 g/dl (32.0-36.0); PLATELET COUNT 370 K/uL (150-450); RED BLOOD COUNT 3.52 M/uL (4.00-6.00); RED CELL DISTRIBUTION WIDTH 16.7 % (11.5-14.5)
[2024-12-28 04:11] LABS: MEAN CORPUSCULAR HEMOGLOBIN 28.4 pg (27.00-32.0)
[2024-12-28 04:54] LABS: ALBUMIN 2.6 gm/dL (3.4-5.0); BILIRUBIN TOTAL 0.37 mg/dL (0.3-1.2); CALCIUM 9.1 mg/dL (8.5-10.1); CREATININE SERUM 1.4 mg/dL (0.55-1.02); GFR 35.82; GLOBULINA 4.1 G/DL (2.4-3.5); PHOSPHOROUS 2.9 mg/dL (2.5-4.9); POTASSIUM 4.74 mEq/L (3.5-5.1); TOTAL PROTEIN 6.7 gm/dL (6.4-8.2)
[2024-12-28 04:56] LABS: MAGNESIUM 1.4 mg/dL (1.8-2.4)
[2024-12-28] MEDS ORDERED: MAGNESIUM SULFATE IN WATER 50 ML IV NR (08:00)
[2024-12-28 08:42] VITALS: BP 127/77; O2SAT 98
[2024-12-28] MEDS ORDERED: ENOXAPARIN SODIUM 30 MG/0.3 ML SYRINGE SUBCUTANEO SCH (09:00)
[2024-12-28] MEDS ORDERED: PHENAZOPYRIDINE HCL 100 MG TABLET PO SCH (09:00)
[2024-12-28 16:00] VITALS: BP 120/70; O2SAT 95
[2024-12-29] VITALS: BP 145/74; O2SAT 96
[2024-12-29] MEDS ORDERED: MEROPENEM 500 MG/VIAL VIAL IV SCH (01:00)
[2024-12-29 07:57] LABS: ALBUMIN 2.5 gm/dL (3.4-5.0); BILIRUBIN TOTAL 0.39 mg/dL (0.3-1.2); CALCIUM 9.1 mg/dL (8.5-10.1); CREATININE SERUM 0.97 mg/dL (0.55-1.02); GFR 54.71; GLOBULINA 3.9 G/DL (2.4-3.5); POTASSIUM 4.67 mEq/L (3.5-5.1); TOTAL PROTEIN 6.4 gm/dL (6.4-8.2)
[2024-12-29 08:08] VITALS: BP 121/66; O2SAT 95
[2024-12-29] MEDS ORDERED: LOPERAMIDE HCL 2 MG CAPSULE PO PRN (11:00)
[2024-12-29 16:36] VITALS: BP 135/79; O2SAT 98
[2024-12-30 00:27] VITALS: BP 158/83; O2SAT 97
[2024-12-30 08:18] LABS: ALBUMIN 2.7 gm/dL (3.4-5.0); BILIRUBIN TOTAL 0.47 mg/dL (0.3-1.2); CALCIUM 9.7 mg/dL (8.5-10.1); CREATININE SERUM 1.1 mg/dL (0.55-1.02); GFR 47.32; GLOBULINA 4.3 G/DL (2.4-3.5); POTASSIUM 5.08 mEq/L (3.5-5.1)
[2024-12-30 08:20] VITALS: BP 157/71; O2SAT 97
[2024-12-30 08:20] LABS: HEMATOCRIT 32.7 % (36.0-45.00); HEMOGLOBIN 10.6 g/dL (12.0-15.00); MEAN CELL VOLUME 86.8 fL (80.00-100.00); MEAN CORPUSCULAR HEMOGLOBIN 28.2 pg (27.00-32.0); MEAN CORPUSCULAR HGB CONC 32.5 g/dl (32.0-36.0); PLATELET COUNT 429 K/uL (150-450); RED BLOOD COUNT 3.77 M/uL (4.00-6.00); RED CELL DISTRIBUTION WIDTH 16.5 % (11.5-14.5)
[2024-12-30 09:05] LABS: URINE APPEARANCE Cloudy; URINE BILIRRUBIN Small (NEGATIVE); URINE BLOOD Large; URINE COLOR Dark Yellow; URINE GLUCOSE Negative (NEGATIVE); URINE KETONE Negative (NEGATIVE); URINE LEUKOCYTE Moderate; URINE NITRATE Positive
[2024-12-30 09:09] LABS: URINE BACTERIA 353.7 uL (0.0-1933); URINE WBC 518.8 uL (0.0-23.2)
[2024-12-30 09:21] LABS: URINE CAST 0.73 uL (0.0-1.40); URINE PROTEIN 300 (NEGATIVE); URINE RBC > 10558.9 uL (0.0-20.8)
[2024-12-30] MEDS ORDERED: IPRATROPIUM BROMIDE 0.5 MG/2.5 ML AMPUL.NEB IH NR (10:00)
[2024-12-30] MEDS ORDERED: IPRATROPIUM BROMIDE 0.5 MG/2.5 ML AMPUL.NEB IH SCH (13:00)
[2024-12-30 16:50] VITALS: BP 115/75; O2SAT 99
[2024-12-31 00:44] VITALS: BP 120/77; O2SAT 96
[2024-12-31 08:00] VITALS: BP 155/83
[2024-12-31 08:33] LABS: HEMATOCRIT 29.5 % (36.0-45.00); HEMOGLOBIN 9.4 g/dL (12.0-15.00); MEAN CELL VOLUME 87.4 fL (80.00-100.00); MEAN CORPUSCULAR HEMOGLOBIN 27.8 pg (27.00-32.0); MEAN CORPUSCULAR HGB CONC 31.9 g/dl (32.0-36.0); PLATELET COUNT 307 K/uL (150-450); RED BLOOD COUNT 3.37 M/uL (4.00-6.00)
[2024-12-31 09:25] LABS: ALBUMIN 2.3 gm/dL (3.4-5.0); BILIRUBIN TOTAL 0.47 mg/dL (0.3-1.2); CALCIUM 8.7 mg/dL (8.5-10.1); CREATININE SERUM 1.04 mg/dL (0.55-1.02); GFR 50.48; GLOBULINA 3.6 G/DL (2.4-3.5); POTASSIUM 4.25 mEq/L (3.5-5.1); TOTAL PROTEIN 5.9 gm/dL (6.4-8.2)
[2024-12-31 16:36] VITALS: BP 145/83; O2SAT 97
[2025-01-01 00:51] VITALS: BP 157/81; O2SAT 97
[2025-01-01 09:56] VITALS: BP 131/71; BP 146/76; O2SAT 97; O2SAT 99
== END 2025-01-01 17:03 | disposition home or self-care (01) | DRG 872 ==
LOC: ER 15:51 → ICU-2 23:11 → SEC-K 12-27 11:14 → SURH 12-27 11:54
PROVIDERS: General Practice; Internal Medicine; Internal Medicine Infectious Disease; ADMIT Internal Medicine; ATTEND Internal Medicine
PROC: BW21ZZZ Computerized Tomography (CT Scan) of Abdomen and Pelvis (ICD-10-PCS; 2024-12-26)
PROC: 4A12X4Z Monitoring of Cardiac Electrical Activity, External Approach (ICD-10-PCS; 2024-12-27)
PROC: 02HV33Z Insertion of Infusion Device into Superior Vena Cava, Percutaneous Approach (ICD-10-PCS; principal; 2024-12-31)
DX: A41.89 Other specified sepsis (principal); N17.9 Acute kidney failure, unspecified; K52.9 Noninfective gastroenteritis and colitis, unspecified; N28.89 Other specified disorders of kidney and ureter; D72.823 Leukemoid reaction; G70.00 Myasthenia gravis without (acute) exacerbation; I10 Essential (primary) hypertension; Z93.2 Ileostomy status

== ENCOUNTER 2025-02-06 19:44 | Inpatient (IN) | payer OTHER ==
[~2025-02-06] VITALS: Ht 162.6 cm; Wt 74.8 kg
[~2025-02-06 19:44] MED LIST changes: +CARDIZEM60 MG PO; +DOXYCYCLINE HY100 M2 PO; +INTESTINEX680 M1 PO; +PANTOPRAZOLE SO40 MG PO
[2025-02-06] MEDS ORDERED: MESTINON180 MG (19:55)
--- NOTE | 2025-02-06 19:55 | NUR ---
SE RECIBE PACIENTE ALERTA Y ORIENTADA X 3 ESFERAS EN [facility]IA DE [facility] POR UN ABSCESO INTRA ABDOMINAL.
--- NOTE | 2025-02-06 19:59 | NUR ---
PACIENTE OPERADA POR DRA.MARLA HIGGINS EL 01/09/25.
[2025-02-06] MEDS ORDERED: MEROPENEM 500 MG/VIAL VIAL IV SCH (20:54)
[2025-02-06] MEDS ORDERED: ONDANSETRON HCL 4 MG in 0.9 % SODIUM CHLORIDE 50 ML IV PRN (21:00)
[2025-02-06] MEDS ORDERED: CHOLESTYRAMINE/ASPARTAME LIGHT 4 G/PKT PACKET PO ONE (21:00)
[2025-02-06] MEDS ORDERED: PYRIDOSTIGMINE BROMIDE 60 MG TABLET PO SCH (21:00)
[2025-02-06] MEDS ORDERED: ACETAMINOPHEN 500 MG GEL..CAP PO PRN (21:00)
[2025-02-06] MEDS ORDERED: 0.9 % SODIUM CHLORIDE 1,000 ML IV SCH (21:15)
[2025-02-06 22:05] LABS: HEMATOCRIT 34.3 % (36.0-45.00); HEMOGLOBIN 11.6 g/dL (12.0-15.00); MEAN CELL VOLUME 89.5 fL (80.00-100.00); MEAN CORPUSCULAR HEMOGLOBIN 30.4 pg (27.00-32.0); PLATELET COUNT 403 K/uL (150-450); RED BLOOD COUNT 3.83 M/uL (4.00-6.00); RED CELL DISTRIBUTION WIDTH 18.8 % (11.5-14.5)
[2025-02-06 22:15] LABS: ERYTHROCYTE SEDIMENTATION RATE 31 mm/hr
[2025-02-06 22:20] LABS: INR 1.1; PARTIAL THROMBOPLASTIN TIME 25.3 SECONDS (22.0-34.0); PROTHROMBIN TIME 11.9 SECONDS (9.0-11.5)
[2025-02-06 22:31] LABS: ALBUMIN 2.2 gm/dL (3.4-5.0); BILIRUBIN TOTAL 0.36 mg/dL (0.3-1.2); C-REACTIVE PROTEIN 1.51 MG/DL (0.00-0.29); CREATININE SERUM 0.57 mg/dL (0.55-1.02); GFR 101.05; GLOBULINA 3.2 G/DL (2.4-3.5); POTASSIUM 3.9 mEq/L (3.5-5.1); TOTAL PROTEIN 5.4 gm/dL (6.4-8.2)
[2025-02-06 23:35] LABS: PH,URINE 5.5 (5.0-8.0); URINE APPEARANCE Clear; URINE BILIRRUBIN Negative (NEGATIVE); URINE BLOOD Negative; URINE COLOR Dark Yellow; URINE GLUCOSE Negative (NEGATIVE); URINE KETONE Trace (NEGATIVE); URINE LEUKOCYTE Trace; URINE NITRATE Negative; URINE UROBILINOGEN 0.2 E.U./dl
[2025-02-06 23:39] LABS: URINE BACTERIA 67.3 uL (0.0-1933); URINE EPITHELIAL CELLS 8.2 uL (0.0-38.8); URINE RBC 16.4 uL (0.0-20.8); URINE WBC 96.4 uL (0.0-23.2)
[2025-02-07] LABS: URINE CAST 1.17 uL (0.0-1.40); URINE MUCUS SCANT; URINE PROTEIN 100 (NEGATIVE); URINE YEAST FEW /hpf
[2025-02-07 01:10] LABS: FECAL LEUKOCYTES POSITIVE (NEGATIVE)
[2025-02-07 02:45] VITALS: BP 139/75; O2SAT 98
[2025-02-07 08:00] VITALS: BP 142/84; O2SAT 97
[2025-02-07] MEDS ORDERED: LACTOBACILLUS ACIDOPHILUS 1 CAP CAP PO SCH (09:00)
[2025-02-07] MEDS ORDERED: PREDNISONE 5 MG TABLET PO SCH (09:00)
[2025-02-07] MEDS ORDERED: FAMOTIDINE/PF 20 MG in 0.9 % SODIUM CHLORIDE 8 ML IV PUSH SCH (09:00)
[2025-02-07] MEDS ORDERED: CHOLESTYRAMINE/ASPARTAME LIGHT 4 G/PKT PACKET PO SCH (12:04)
[2025-02-07 16:00] VITALS: BP 135/90; O2SAT 99
[2025-02-07] MEDS ORDERED: ENOXAPARIN SODIUM 40 MG/0.4 ML SYRINGE SUBCUTANEO SCH (17:00)
[2025-02-07] MEDS ORDERED: DILTIAZEM HCL 30 MG TABLET PO SCH (17:00)
[2025-02-07] MEDS ORDERED: MEROPENEM 500 MG/VIAL VIAL IV SCH (18:00)
[2025-02-08 01:21] VITALS: BP 146/77; O2SAT 97
[2025-02-08 08:00] VITALS: BP 138/72; O2SAT 97
[2025-02-08 16:00] VITALS: BP 147/83; O2SAT 97
[2025-02-08] MEDS ORDERED: ZINC OXIDE 30 GM TUBE TOP SCH (17:00)
[2025-02-08] MEDS ORDERED: SILVER SULFADIAZINE 50 GM JAR TOP SCH (17:00)
[2025-02-08] MEDS ORDERED: NYSTATIN 30 GM CREAM.GM. TOP SCH (17:00)
[2025-02-08] MEDS ORDERED: fentaNYL CITRATE 50 MCG/ML AMPUL IV PUSH ONE (19:15)
[2025-02-08] MEDS ORDERED: MIDAZOLAM HCL 2 MG/2 ML VIAL IV PUSH ONE (19:15)
[2025-02-09 01:13] VITALS: BP 112/67; O2SAT 98
[2025-02-09] MEDS ORDERED: PREDNISONE 5 MG TABLET PO STA (09:41)
[2025-02-09 10:01] LABS: HEMATOCRIT 33.1 % (36.0-45.00); HEMOGLOBIN 11.1 g/dL (12.0-15.00); MEAN CORPUSCULAR HEMOGLOBIN 30.2 pg (27.00-32.0); MEAN CORPUSCULAR HGB CONC 33.5 g/dl (32.0-36.0); PLATELET COUNT 443 K/uL (150-450); RED BLOOD COUNT 3.68 M/uL (4.00-6.00); RED CELL DISTRIBUTION WIDTH 18.6 % (11.5-14.5)
[2025-02-09 10:28] LABS: BILIRUBIN TOTAL 0.3 mg/dL (0.3-1.2); CALCIUM 8.1 mg/dL (8.5-10.1); CREATININE SERUM 0.47 mg/dL (0.55-1.02); GFR 126.24; GLOBULINA 3.2 G/DL (2.4-3.5); PHOSPHOROUS 2.1 mg/dL (2.5-4.9); POTASSIUM 3.97 mEq/L (3.5-5.1); TOTAL PROTEIN 5.2 gm/dL (6.4-8.2)
[2025-02-09 11:18] LABS: MAGNESIUM 0.8 mg/dL (1.8-2.4)
[2025-02-09 16:00] VITALS: BP 134/61; O2SAT 96
[2025-02-09] MEDS ORDERED: ACETAMINOPHEN 500 MG GEL..CAP PO PRN (16:30)
[2025-02-09] MEDS ORDERED: NYSTATIN 30 GM,ZINC OXIDE 30 GM,SILVER SULFADIAZINE 50 GM TOP SCH (17:00)
[2025-02-09] MEDS ORDERED: VANCOMYCIN HCL 1,000 MG VIAL IV SCH (21:00)
[2025-02-10 00:31] VITALS: BP 133/67; O2SAT 97
[2025-02-10 08:00] VITALS: BP 154/69; O2SAT 96
[2025-02-10] MEDS ORDERED: PREDNISONE 5 MG TABLET PO SCH (09:00)
[2025-02-10] MEDS ORDERED: FLUCONAZOLE IN NACL,ISO-OSM 200 MG/100 ML PIGGYBAG IV STA (09:16)
[2025-02-10] MEDS ORDERED: MEGESTROL ACETATE 400 MG/10 ML BLIST PACK PO SCH (10:57)
[2025-02-10] MEDS ORDERED: VANCOMYCIN HCL 1,000 MG VIAL ONE (15:39)
[2025-02-10 16:38] VITALS: BP 134/73; O2SAT 98
[2025-02-11 00:33] VITALS: BP 138/61; O2SAT 97
[2025-02-11 06:28] LABS: HEMATOCRIT 30.4 % (36.0-45.00); HEMOGLOBIN 10.4 g/dL (12.0-15.00); MEAN CELL VOLUME 88.9 fL (80.00-100.00); MEAN CORPUSCULAR HEMOGLOBIN 30.5 pg (27.00-32.0); MEAN CORPUSCULAR HGB CONC 34.3 g/dl (32.0-36.0); PLATELET COUNT 481 K/uL (150-450); RED BLOOD COUNT 3.42 M/uL (4.00-6.00); RED CELL DISTRIBUTION WIDTH 18.9 % (11.5-14.5)
[2025-02-11 07:50] LABS: CALCIUM 7.6 mg/dL (8.5-10.1); CREATININE SERUM 0.39 mg/dL (0.55-1.02); GFR 156.57; POTASSIUM 3.66 mEq/L (3.5-5.1)
[2025-02-11 08:22] LABS: MAGNESIUM 1.3 mg/dL (1.8-2.4); PHOSPHOROUS 1.6 mg/dL (2.5-4.9)
[2025-02-11 08:35] VITALS: BP 159/90; O2SAT 96
[2025-02-11] MEDS ORDERED: FLUCONAZOLE IN NACL,ISO-OSM 2 MG/ML ML IV SCH (09:00)
[2025-02-11] MEDS ORDERED: POTASSIUM PHOS,M-BASIC-D-BASIC 15 MM in 0.9 % SODIUM CHLORIDE 250 ML IV NR (09:45)
[2025-02-11] MEDS ORDERED: MAGNESIUM SULFATE IN WATER 2 GM/50 ML PIGGYBAG IV STA (10:46)
[2025-02-11] MEDS ORDERED: VANCOMYCIN HCL 1,000 MG VIAL ONE (14:11)
[2025-02-11] MEDS ORDERED: METRONIDAZOLE/SODIUM CHLORIDE 100 ML IV SCH (17:00)
[2025-02-11 17:03] VITALS: BP 149/81; O2SAT 96
[2025-02-11] MEDS ORDERED: AMPICILLIN SODIUM/SULBACTAM NA 3,000 MG in 0.9 % SODIUM CHLORIDE 100 ML IV SCH (18:00)
[2025-02-12] VITALS: BP 151/87; O2SAT 97
[2025-02-12 08:00] VITALS: BP 149/85; O2SAT 95
[2025-02-12] MEDS ORDERED: LOPERAMIDE HCL 2 MG CAPSULE PO SCH (17:00)
[2025-02-12 17:57] VITALS: BP 148/78; O2SAT 98
[2025-02-13 01:27] VITALS: BP 143/81; O2SAT 98
[2025-02-13 07:08] LABS: campy Final report (.)
[2025-02-13 08:00] VITALS: BP 158/87; O2SAT 95
[2025-02-13] MEDS ORDERED: SODIUM CL 0.9% 100 ML IV.SOLN IV ONE (14:22)
[2025-02-13 16:00] VITALS: BP 145/82; O2SAT 98
[2025-02-14 01:42] VITALS: BP 149/73; O2SAT 97
[2025-02-14 08:00] VITALS: BP 145/76; O2SAT 95
[2025-02-14] MEDS ORDERED: MAGNESIUM SULFATE IN WATER 2 GM/50 ML PIGGYBAG IV ONE (12:00)
[2025-02-14 12:14] LABS: CALCIUM 8.2 mg/dL (8.5-10.1); CREATININE SERUM 0.49 mg/dL (0.55-1.02); GFR 120.32; POTASSIUM 4.38 mEq/L (3.5-5.1)
[2025-02-14 12:49] LABS: MAGNESIUM 1.1 mg/dL (1.8-2.4)
[2025-02-14 12:54] LABS: HEMATOCRIT 31.9 % (36.0-45.00); HEMOGLOBIN 10.8 g/dL (12.0-15.00); MEAN CELL VOLUME 88.3 fL (80.00-100.00); PLATELET COUNT 489 K/uL (150-450); RED BLOOD COUNT 3.61 M/uL (4.00-6.00); RED CELL DISTRIBUTION WIDTH 19.2 % (11.5-14.5)
[2025-02-14] MEDS ORDERED: POTASSIUM PHOS,M-BASIC-D-BASIC 3 MM/ML VIAL IV ONE (14:00)
[2025-02-14 18:00] VITALS: BP 148/74; O2SAT 95
[2025-02-15] VITALS: BP 151/66; O2SAT 95
[2025-02-15 08:43] VITALS: BP 157/81; O2SAT 96
[2025-02-15] MEDS ORDERED: HYDROCHLOROTHIAZIDE 12.5 MG CAPSULE PO NR (12:30)
[2025-02-15 16:00] VITALS: BP 132/79; O2SAT 96
[2025-02-16] MEDS ORDERED: HYDROCHLOROTHIAZIDE 12.5 MG CAPSULE PO SCH (09:00)
== END 2025-02-16 07:21 | disposition home or self-care (01) | DRG 758 ==
LOC: ER 19:44 → SURH 21:58
PROVIDERS: General Practice; Internal Medicine Geriatric Medicine; Internal Medicine Infectious Disease; ADMIT Surgery; ATTEND Surgery
PROC: 0W9J30Z Drainage of Pelvic Cavity with Drainage Device, Percutaneous Approach (ICD-10-PCS; principal; 2025-02-08)
PROC: 02HV33Z Insertion of Infusion Device into Superior Vena Cava, Percutaneous Approach (ICD-10-PCS; 2025-02-12)
PROC: BW21ZZZ Computerized Tomography (CT Scan) of Abdomen and Pelvis (ICD-10-PCS; 2025-02-13)
DX: N73.9 Female pelvic inflammatory disease, unspecified (principal); N39.0 Urinary tract infection, site not specified; K52.9 Noninfective gastroenteritis and colitis, unspecified; B95.2 Enterococcus as the cause of diseases classified elsewhere; G70.00 Myasthenia gravis without (acute) exacerbation